=== PATIENT | male | born 1990 | race Caucasian/White ===

== ENCOUNTER 2020-07-10 12:30 | Emergency (ER) | payer OTHER, SELFPAY ==
--- NOTE | ~2020-07-10 | CT_ITS ---
EXAMINATION: CT HEAD WITHOUT CONTRAST CLINICAL INFORMATION: Altered mental syndrome. COMPARISON: None TECHNIQUE: Contiguous axial imaging was performed from the skull base to vertex without intravenous administration of contrast. This CT examination was performed using dose optimization techniques as appropriate, variously including the following: *Automated exposure control *Adjustment of mA and/or kV according to patient size (this includes techniques or standardized protocols for targeted exams where dose is matched to indication/reason for exam; i.e. extremities or head) *Use of iterative reconstruction technique DLP: 585 mGy-cm FINDINGS: There is no evidence of acute intracranial hemorrhage or territorial infarction. No abnormal mass effect or midline shift is seen. Beatty to white matter differentiation is well preserved. No extra-axial fluid collections are identified. The ventricles are normal in size. There is no abnormal attenuation within the brain parenchyma. The osseous structures and soft tissues are normal. The mastoid air cells and visualized portions of the paranasal sinuses are well aerated. CT/CT head/brain wo con IMPRESSION: No acute intracranial process seen.
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
[2020-07-10 14:05] VITALS: BP 138/83; PULSE 75; RESP 16; TEMP 36.8; O2SAT 97; BMI 22.2
[2020-07-10 14:09] LABS: Glucose, Whole Blood 428 mg/dL (60-115)
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
[2020-07-10 14:38] LABS: MANUAL DIFF FLAG NO
[2020-07-10 14:39] LABS: Basophils Percent Auto 0.5 % (0-2); Eosinophils Absolute Auto 0.2 X10*3/uL (0.0-0.4); Eosinophils Percent Auto 2.5 % (0-4); Hematocrit 49.4 % (42-52); Hemoglobin 17.1 g/dl (14.0-18.0); Imm Gran Abs Auto 0.01 X10*3/uL (0.00-0.03); Imm Gran Pct Auto 0.2 % (0.0-0.4); Lymphocytes Absolute Auto 1.6 X10*3/uL (1.2-4.9); Lymphocytes Percent Auto 25.5 % (20-40); Mean Corpuscular HGB Conc 34.6 g/dl (31.0-36.0); Mean Corpuscular Hemoglobin 31.7 pg (27.0-33.0); Mean Corpuscular Volume 91.5 fL (80-98); Mean Platelet Volume 10.4 fL (9.4-12.4); Monocytes Absolute Auto 0.4 X10*3/uL (0.1-1.2); Monocytes Percent Auto 5.4 % (2-11); Neutrophils Absolute Auto 4.2 X10*3/uL (2.0-8.3); Neutrophils Percent Auto 65.9 % (45-73); Platelet Count 267 X10*3/uL (160-400); Red Cell Distribution Width 11.5 % (11.0-16.0); White Blood Count 6.4 X10*3/uL (4.8-10.8)
[2020-07-10] MEDS: Insulin Regular, Human 100 UNIT/ML 3 ML VIAL IVPUSH (14:53)
[2020-07-10] MEDS: 0.9 % Sodium Chloride 1,000 ML 999 ML IV (14:54)
--- NOTE | 2020-07-10 15:11 | PC.NURSE ---
iv fluids infusing, at 1500 insulin given as ordered, pt continues with blunted affect, difficulty answering questions, appears to become confused/overwhelmed prior to answering, difficulty focusing
[2020-07-10 15:14] LABS: Ethanol < 10 mg/dL
[2020-07-10 15:45] LABS: Glucose, Whole Blood 258 mg/dL (60-115)
--- NOTE | 2020-07-10 15:54 | PC.NURSE ---
iv fluids infused w/o apparent incident 2 cups water given, still waiting for urine specimen and lab results. dr triplett aware poc 258, pt reports vision improved, head feels better
[2020-07-10 15:59] LABS: Anion Gap 10 (12-20); Blood Urea Nitrogen 12 mg/dL (9-16); Calcium 8.7 mg/dL (8.4-10.2); Carbon Dioxide 32 mmol/L (22-29); Chloride 99 mmol/L (96-108); Estimated Glomerular Filt Rate > 60; Glucose Random 399 mg/dL (60-115); Potassium 4.1 mmol/L (3.3-5.1); Sodium 137 mmol/L (135-145)
[2020-07-10 16:09] LABS: Glucose, Whole Blood 266 mg/dL (60-115)
--- NOTE | 2020-07-10 16:09 | PC.NURSE ---
REPEAT POC PER DR CLARKU 266
== END 2020-07-10 16:21 | disposition home or self-care (01) ==
PROVIDERS: Emergency Provider Emergency Medicine Emergency Medical Services
DX: S09.90XA Unspecified injury of head, initial encounter (principal); V43.52XA Car driver injured in collision with other type car in traffic accident, initial encounter; Y93.89 Activity, other specified; Y92.414 Local residential or business street as the place of occurrence of the external cause; Y99.9 Unspecified external cause status; E11.65 Type 2 diabetes mellitus with hyperglycemia; Z91.14 Patient's other noncompliance with medication regimen; M54.9 Dorsalgia, unspecified
CPT/HCPCS: 36415; 70450; 72100; 80048; 80320; 82947; 85025; 96361; 96374; 99283; 99284

== ENCOUNTER 2020-12-26 06:21 | Emergency (ER) | payer OTHER, SELFPAY ==
[2020-12-26 06:25] VITALS: BP 127/80; PULSE 57; RESP 16; TEMP 37.2; O2SAT 100; BMI 21.8
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
== END 2020-12-26 12:25 | disposition left against medical advice (07) ==
PROVIDERS: Emergency Provider Emergency Medicine
DX: F10.120 Alcohol abuse with intoxication, uncomplicated (principal); E11.9 Type 2 diabetes mellitus without complications; F12.90 Cannabis use, unspecified, uncomplicated; Z79.4 Long term (current) use of insulin
CPT/HCPCS: 99282

== ENCOUNTER 2021-02-09 11:05 | Emergency (ER) | payer OTHER, SELFPAY ==
[2021-02-09 12:06] VITALS: BP 125/83; PULSE 75; RESP 18; TEMP 36.6; O2SAT 98; BMI 22.3
[2021-02-09 13:01] LABS: MANUAL DIFF FLAG NO
[2021-02-09 13:02] LABS: Basophils Percent Auto 0.5 % (0-2); Eosinophils Absolute Auto 0.1 X10*3/uL (0.0-0.4); Eosinophils Percent Auto 1.9 % (0-4); Hematocrit 44.8 % (42-52); Hemoglobin 15.4 g/dl (14.0-18.0); Imm Gran Abs Auto 0.02 X10*3/uL (0.00-0.03); Imm Gran Pct Auto 0.3 % (0.0-0.4); Lymphocytes Absolute Auto 1.4 X10*3/uL (1.2-4.9); Lymphocytes Percent Auto 22.2 % (20-40); Mean Corpuscular HGB Conc 34.4 g/dl (31.0-36.0); Mean Corpuscular Volume 95.9 fL (80-98); Mean Platelet Volume 10.5 fL (9.4-12.4); Monocytes Absolute Auto 0.4 X10*3/uL (0.1-1.2); Monocytes Percent Auto 6.4 % (2-11); Neutrophils Absolute Auto 4.3 X10*3/uL (2.0-8.3); Neutrophils Percent Auto 68.7 % (45-73); Platelet Count 222 X10*3/uL (160-400); Red Blood Count 4.67 X10*6/uL (4.60-5.80); Red Cell Distribution Width 11.8 % (11.0-16.0); White Blood Count 6.3 X10*3/uL (4.8-10.8)
[2021-02-09 13:03] LABS: Appearance Urine HAZY; Color Urine STRAW; Glucose Urine UA >=1000 MG/DL (NEG); Leukocyte Esterase Urine NEG (NEG); Nitrite Urine NEG (NEG); Urine Blood NEG (NEG); Urine Ketones 15 MG/DL (NEG); Urine Protein NEG (NEG-TRACE)
[2021-02-09 13:13] LABS: RBC Urine 0-2 /HPF (0); WBC Urine 0-2 /HPF (0-4)
[2021-02-09 13:34] LABS: Alanine Aminotransferase 25 U/L (0-40); Albumin Level 4.2 g/dL (3.5-5.0); Alkaline Phosphatase 69 U/L (39-117); Anion Gap 15 (12-20); Aspartate Amino Transferase 26 U/L (5-37); Bilirubin Total 0.5 mg/dL (0.0-1.0); Blood Urea Nitrogen 10 mg/dL (9-16); Calcium 9.5 mg/dL (8.4-10.2); Carbon Dioxide 24 mmol/L (22-29); Chloride 99 mmol/L (96-108); Estimated Glomerular Filt Rate > 60; Glucose Random 660 mg/dL (60-115); Potassium 5.1 mmol/L (3.3-5.1); Sodium 133 mmol/L (135-145); Total Protein 6.5 g/dL (6.5-8.0)
[2021-02-09 13:43] LABS: Acetone, serum QL Negative (Negative)
[2021-02-09 13:48] LABS: Glucose, Whole Blood 534 mg/dL (60-115)
--- NOTE | 2021-02-09 16:17 | PC.NURSE ---
ATTEMPTED TO CALL PATIENT INTO ED. NO ANSWER IN WAITING ROOM
--- NOTE | 2021-02-09 17:11 | PC.NURSE ---
pt has bneeen called mult times. no response in wr.
== END 2021-02-09 17:37 | disposition left against medical advice (07) ==
PROVIDERS: Emergency Provider Emergency Medicine
DX: E11.65 Type 2 diabetes mellitus with hyperglycemia (principal); R53.1 Weakness; Z79.4 Long term (current) use of insulin
CPT/HCPCS: 36415; 80053; 81001; 81003; 82009; 82947; 85025; 96360; 96361; 99282; 99283; 99284

== ENCOUNTER 2021-07-16 03:09 | Emergency (ER) | payer OTHER, SELFPAY ==
[2021-07-16 03:14] VITALS: BP 139/88; BP 150/92; PULSE 66; RESP 16; TEMP 36.6; O2SAT 98; BMI 20.3
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
[2021-07-16] MEDS: Insulin Regular, Human 100 UNIT/ML 3 ML VIAL 10 UNIT IVPUSH (03:29)
[2021-07-16] MEDS: 0.9 % Sodium Chloride 1,000 ML 999 ML IV (03:31)
[2021-07-16 03:48] LABS: MANUAL DIFF FLAG NO
[2021-07-16 03:49] LABS: Basophils Percent Auto 0.2 % (0-2); Eosinophils Percent Auto 0.5 % (0-4); Hematocrit 40.5 % (42.0-52.0); Hemoglobin 13.9 g/dl (14.0-18.0); Imm Gran Abs Auto 0.01 X10*3/uL (0.00-0.03); Imm Gran Pct Auto 0.2 % (0.0-0.4); Lymphocytes Absolute Auto 2.2 X10*3/uL (1.2-4.9); Lymphocytes Percent Auto 33.7 % (20-40); Mean Corpuscular HGB Conc 34.3 g/dl (31.0-36.0); Mean Corpuscular Hemoglobin 31.8 pg (27.0-33.0); Mean Corpuscular Volume 92.7 fL (80.0-98.0); Mean Platelet Volume 9.9 fL (9.4-12.4); Monocytes Absolute Auto 0.1 X10*3/uL (0.1-1.2); Monocytes Percent Auto 1.7 % (2-11); Neutrophils Absolute Auto 4.1 x10*3/uL (2.0-8.3); Neutrophils Percent Auto 63.7 % (45-73); Platelet Count 181 X10*3/uL (160-400); Red Blood Count 4.37 X10*6/uL (4.60-5.80); Red Cell Distribution Width 11.6 % (11.0-16.0); White Blood Count 6.4 X10*3/uL (4.8-10.8)
[2021-07-16 03:50] LABS: Venous Blood Gas Refer to POC result
[2021-07-16 03:52] LABS: VBG Base Excess 0.7 mmol/L; VBG HCO3 25 mmol/L (22-26); VBG pCO2 41 mmHg; VBG pH 7.39 (7.32-7.43); VBG pO2 68 mmHg
[2021-07-16 04:09] VITALS: BP 124/65; PULSE 62; RESP 12; O2SAT 98
[2021-07-16 04:13] LABS: Alanine Aminotransferase 12 U/L (0-40); Albumin Level 3.9 g/dL (3.5-5.0); Alkaline Phosphatase 58 U/L (39-117); Anion Gap 13 (12-20); Aspartate Amino Transferase 14 U/L (5-37); Bilirubin Direct < 0.2 mg/dL (0.0-0.5); Bilirubin Total 0.3 mg/dL (0.0-1.0); Blood Urea Nitrogen 15 mg/dL (9-16); Calcium 8.1 mg/dL (8.4-10.2); Carbon Dioxide 27 mmol/L (22-29); Chloride 101 mmol/L (96-108); Creatinine Clr Calc Pharmacy 118.3; Estimated Glomerular Filt Rate > 60; Glucose Random 332 mg/dL (60-115); Potassium 3.1 mmol/L (3.3-5.1); Sodium 138 mmol/L (135-145); Total Protein 6.1 g/dL (6.5-8.0)
--- NOTE | 2021-07-16 04:56 | PC.NURSE ---
POC 82
[2021-07-16] MEDS: Potassium Chloride ER 20 MEQ TAB.ER.PRT 40 MEQ PO (05:17)
[2021-07-16] MEDS: Potassium Chloride/H20 10 MEQ/100 ML PIGGYBACK 100 MEQ IV (05:18)
[2021-07-16 11:48] LABS: Glucose, Whole Blood 82 mg/dL (60-115)
[2021-07-16 11:48] LABS: Glucose, Whole Blood 135 mg/dL (60-115)
== END 2021-07-16 06:59 ==
PROVIDERS: Emergency Provider Emergency Medicine
DX: E11.65 Type 2 diabetes mellitus with hyperglycemia (principal); E87.6 Hypokalemia; Z79.4 Long term (current) use of insulin
CPT/HCPCS: 36415; 80048; 80076; 82803; 82947; 85025; 96361; 96365; 96375; 99283; 99284

== ENCOUNTER 2023-05-01 23:22 | Emergency (ER) | payer MEDICAID, SELFPAY ==
[2023-05-01 23:51] VITALS: BP 111/83; PULSE 85; RESP 16; TEMP 36.7; O2SAT 98; BMI 20.9
[2023-05-02 00:08] LABS: Hematocrit 43.8 % (42.0-52.0); Hemoglobin 15.4 g/dl (14.0-18.0); Mean Corpuscular HGB Conc 35.2 g/dl (31.0-36.0); Mean Corpuscular Hemoglobin 32.2 pg (27.0-33.0); Mean Corpuscular Volume 91.4 fL (80.0-98.0); Mean Platelet Volume 10.1 fL (9.4-12.4); Platelet Count 285 X10*3/uL (160-400); Red Blood Count 4.79 X10*6/uL (4.60-5.80); Red Cell Distribution Width 11.5 % (11.0-16.0)
[2023-05-02 00:21] LABS: Beta-Hydroxybutyrate 0.32 mmol/L (0.02-0.27)
[2023-05-02 00:35] LABS: VBG Base Excess 7.5 mmol/L; VBG HCO3 33 mmol/L (22-26); VBG pCO2 49 mmHg; VBG pH 7.43 (7.32-7.43); VBG pO2 101 mmHg
[2023-05-02 00:36] LABS: Alanine Aminotransferase 35 U/L (0-40); Albumin Level 4.2 g/dL (3.5-5.0); Alkaline Phosphatase 98 U/L (39-117); Anion Gap 15 (12-20); Aspartate Amino Transferase 21 U/L (5-37); Bilirubin Total 0.5 mg/dL (0.0-1.0); Blood Urea Nitrogen 24 mg/dL (9-16); Calcium 9.7 mg/dL (8.4-10.2); Carbon Dioxide 29 mmol/L (22-29); Chloride 91 mmol/L (96-108); Creatinine Clr Calc Pharmacy 82.2; Estimated Glomerular Filt Rate > 60; Glucose Random 766 mg/dL (60-115); Lipase 39 U/L (8-78); Potassium 4.5 mmol/L (3.3-5.1); Sodium 130 mmol/L (135-145); Total Protein 7.1 g/dL (6.5-8.0); Venous Blood Gas Refer to POC result
--- NOTE | 2023-05-02 00:38 | ED_ITS ---
HPI - General Adult General Chief complaint: General Medical Stated complaint: high sugars, toothache Time Seen by Provider: 05/02/23 00:15 Source: patient Mode of arrival: ambulatory Limitations: no limitations History of Present Illness HPI narrative: In type 1 diabetes on insulin missed his. Insulin for last 3 days as he could not get it by the insurance. feeling thirsty urinating a lot feeling sleepy and tired no vomiting no fever does have toothache for last 1 week with no pus discharge or gum swelling Related Data Previous Rx's Medication Instructions Recorded amoxicillin 875 mg-potassium 1 tab PO BID #20 tabs 05/02/23 clavulanate 125 mg tablet ibuprofen 600 mg tablet 600 mg PO Q6H PRN fever or pain 05/02/23 #30 tabs insulin glargine 100 unit/mL (3 30 unit (0.3 mL) subcut QPM #15 mL 05/02/23 mL) subcutaneous pen (Lantus Solostar U-100 Insulin) insulin lispro 100 unit/mL 1 sliding scale dose subcut 05/02/23 subcutaneous pen (Humalog KwikPen USEASDIRECTD #15 mL (U-100) Insulin) Allergies Allergy/AdvReac Type Severity Reaction Status Date / Time No Known Allergies Allergy Unverified 02/20/20 16:58 N.K.D.A. Allergy Unknown Uncoded 10/02/18 00:00 Review of Systems 2 Review of Systems: Yes all other systems are reviewed and are negative [facility] Past Medical History Medical History IDDM (insulin dependent diabetes mellitus) Social History Patient Tobacco Use Status: Tobacco use Unknown Substance Use Type: Heroin and Marijuana Advance Directives: No Advance Directives Information Provided: Yes Physical Exam ED Vital Signs: Vital Signs - 24 hr 05/01/23 23:51 05/02/23 03:08 Temperature 98.0 F 98.4 F Pulse Rate 85 77 Respiratory Rate 16 16 Blood Pressure 111/83 121/74 Pulse Oximetry 98 96 Oxygen Delivery Method Room Air Room Air BMI result Body Mass Index 20.9 Appearance: Alert. Oriented X3. No acute distress. Eyes: PERRLA, No Nystagmus ENT: Pharynx normal. Oral Mucosa moist no deep cavity noticed Neck: Normal inspection. Neck supple. CVS: Normal heart rate and rhythm. Pulses normal. Respiratory: No respiratory distress. Equal air entry bilateral, no wheezing/rales/rhonchi Abdomen: Soft and nontender. Bowel sounds are present, no mass palpable, no CVA tenderness Skin: Skin warm and dry. Normal skin color. Normal skin turgor. Extremities: No lower extremity edema. No calf tenderness Neuro: Oriented X 3. No motor deficit. Medications Administered Discontinued Medications Generic Name Dose Route Start Last Admin Trade Name Freq PRN Reason Stop Dose Admin Amoxicillin/Clavulanate Potassium 875 mg 05/02/23 06:19 05/02/23 06:27 Amoxicillin/Potassium Clav 875 Mg Tablet PO 05/02/23 06:20 875 mg ONCE ONE Administration Sodium Chloride 1,000 mls @ 999 mls/hr 05/02/23 00:39 05/02/23 01:38 Ns IV 05/02/23 01:39 Infused .Q1H1M ONE Infusion Sodium Chloride 1,000 mls @ 999 mls/hr 05/02/23 00:40 05/02/23 02:40 Ns IV 05/02/23 01:40 Infused .Q1H1M ONE Infusion Insulin Glargine 30 unit 05/02/23 00:44 05/02/23 01:50 Insulin Glargine,Hum.Rec.Anlog 100 Unit/Ml 10 Ml Vial SUBCUT 05/02/23 00:45 30 unit ONCE ONE Administration Insulin Human Lispro 14 unit 05/02/23 01:59 05/02/23 02:11 Insulin Lispro 100 Unit/Ml 3 Ml Vial SUBCUT 05/02/23 02:00 14 unit ONCE ONE Administration Insulin Human Regular 14 unit 05/02/23 00:39 05/02/23 00:47 Insulin Regular, Human 100 Unit/Ml 3 Ml Vial IVPUSH 05/02/23 00:40 14 unit ONCE ONE Administration Morphine Sulfate 4 mg 05/02/23 01:40 05/02/23 01:51 Morphine Sulfate 4 Mg/Ml Cartridge IVPUSH 05/02/23 01:41 4 mg ONCE ONE Administration Protocol Medical Decision Making Medical Decision Making MDM Narrative: Been noncompliant with insulin does not have insurance in with hyperglycemia nonketotic non acidotic improved after IV hydration and insulin patient will be given prescription for Lantus and regular Humalog advised to follow-up with PCP also give a prescription for Augmentin for possible deep tooth infection Differential Diagnosis Differential Diagnoses: The differential diagnosis associated with the presentation includes Diabetic ketoacidosis/hyperglycemia/dental caries Admission/Observation Consideration of admission/observation: Escalation of care including admission/observation considered Lab Data MDM Lab Attestation statement: I reviewed the patient's lab results. 05/02/23 00:02 05/02/23 00:02 Labs: Lab Results 05/02/23 05/02/23 05/02/23 Range/Units 00:02 00:06 01:47 WBC 8.0 (4.8-10.8) X10*3/uL RBC 4.79 (4.60-5.80) X10*6/uL Hgb 15.4 (14.0-18.0) g/dl Hct 43.8 (42.0-52.0) % MCV 91.4 (80.0-98.0) fL MCH 32.2 (27.0-33.0) pg MCHC 35.2 (31.0-36.0) g/dl RDW 11.5 (11.0-16.0) % Plt Count 285 D (160-400) X10*3/uL MPV 10.1 (9.4-12.4) fL Absolute Nucleated RBC 0.000 (0.0-0.012) X10*3/uL Nucleated RBC % (auto) 0.0 (0.0-0.2) /100WBC VBG pH 7.43 (7.32-7.43) VBG pCO2 49 mmHg VBG pO2 101 mmHg VBG HCO3 33 H (22-26) mmol/L VBG O2 Saturation 99.0 % VBG Base Excess 7.5 mmol/L Sodium 130 L (135-145) mmol/L Potassium 4.5 D (3.3-5.1) mmol/L Chloride 91 L (96-108) mmol/L Carbon Dioxide 29 (22-29) mmol/L Anion Gap 15 (12-20) BUN 24 H (9-16) mg/dL Creatinine 1.23 (0.5-1.4) mg/dL Estim Creat Clear Calc 82.2 Estimated GFR > 60 POC Glucose 427 H* (60-115) mg/dL Random Glucose 766 H* (60-115) mg/dL Calcium 9.7 D (8.4-10.2) mg/dL Total Bilirubin 0.5 (0.0-1.0) mg/dL AST 21 (5-37) U/L ALT 35 (0-40) U/L Alkaline Phosphatase 98 (39-117) U/L Total Protein 7.1 (6.5-8.0) g/dL Albumin 4.2 (3.5-5.0) g/dL Lipase 39 (8-78) U/L Beta-Hydroxybutyrate 0.32 H (0.02-0.27) mmol/L Urine Color Urine Appearance Urine pH (5.0-9.0) Ur Specific [place] (1.005-1.025) Urine Protein (Neg-Trace) mg/dL Urine Glucose (UA) (Negative) mg/dL Urine Ketones (Negative) mg/dL Urine Blood (Negative) Urine Nitrite (Negative) Ur Leukocyte Esterase (Negative) Urine RBC (0-2) /HPF Urine WBC (0-5) /HPF Ur Squamous Epith Cells (0-2) /HPF Urine Bacteria (None Seen) Hyaline Casts (0-2) /LPF 05/02/23 05/02/23 Range/Units 03:47 03:50 WBC (4.8-10.8) X10*3/uL RBC (4.60-5.80) X10*6/uL Hgb (14.0-18.0) g/dl Hct (42.0-52.0) % MCV (80.0-98.0) fL MCH (27.0-33.0) pg MCHC (31.0-36.0) g/dl RDW (11.0-16.0) % Plt Count (160-400) X10*3/uL MPV (9.4-12.4) fL Absolute Nucleated RBC (0.0-0.012) X10*3/uL Nucleated RBC % (auto) (0.0-0.2) /100WBC VBG pH (7.32-7.43) VBG pCO2 mmHg VBG pO2 mmHg VBG HCO3 (22-26) mmol/L VBG O2 Saturation % VBG Base Excess mmol/L Sodium (135-145) mmol/L Potassium (3.3-5.1) mmol/L Chloride (96-108) mmol/L Carbon Dioxide (22-29) mmol/L Anion Gap (12-20) BUN (9-16) mg/dL Creatinine (0.5-1.4) mg/dL Estim Creat Clear Calc Estimated GFR POC Glucose 185 H (60-115) mg/dL Random Glucose (60-115) mg/dL Calcium (8.4-10.2) mg/dL Total Bilirubin (0.0-1.0) mg/dL AST (5-37) U/L ALT (0-40) U/L Alkaline Phosphatase (39-117) U/L Total Protein (6.5-8.0) g/dL Albumin (3.5-5.0) g/dL Lipase (8-78) U/L Beta-Hydroxybutyrate (0.02-0.27) mmol/L Urine Color Yellow Urine Appearance Clear Urine pH 5.5 (5.0-9.0) Ur Specific [place] >= 1.030 H (1.005-1.025) Urine Protein Negative (Neg-Trace) mg/dL Urine Glucose (UA) >=1000 H (Negative) mg/dL Urine Ketones Negative (Negative) mg/dL Urine Blood Negative (Negative) Urine Nitrite Negative (Negative) Ur Leukocyte Esterase Negative (Negative) Urine RBC 0-2 (0-2) /HPF Urine WBC 0-5 (0-5) /HPF Ur Squamous Epith Cells 0-2 (0-2) /HPF Urine Bacteria None Seen (None Seen) Hyaline Casts 0-2 (0-2) /LPF Critical Care Time Critical Care Time Critical Care Time: Yes Total Critical Care Time: 45 Attestation: The patient was critically ill with a high probability of imminent or life threatening deterioration. I spent greater than 50 minutes of discontinuous time evaluating the patient,delivering critical care at the bedside, discussing and evaluating pertinent data with consultants. Critical care time does not include time spent performing separately billable procedures or teaching. Total time spent performing critical care was 45 minutes. Discharge Plan Discharge Clinical Impression: Diabetes mellitus with hyperglycemia, Toothache Patient Disposition: Home, Self-Care Instructions: Toothache (ED), Diabetic Hyperglycemia (ED) Prescriptions: New amoxicillin-pot clavulanate 875-125 mg tablet 1 tab PO BID Qty: 20 0RF insulin glargine [Lantus Solostar U-100 Insulin] 100 unit/mL (3 mL) insulin pen 30 unit subcut QPM Qty: 15 3RF insulin lispro [Humalog KwikPen Insulin] 100 unit/mL insulin pen 1 sliding scale dose subcut USEASDIRECTD Qty: 15 2RF ibuprofen 600 mg tablet 600 mg PO Q6H PRN (Reason: fever or pain) Qty: 30 0RF
[2023-05-02] MEDS: Insulin Regular, Human 100 UNIT/ML 3 ML VIAL 14 UNIT IVPUSH (00:47)
[2023-05-02] MEDS: 0.9 % Sodium Chloride 1,000 ML 999 ML IV ×2 (00:50→01:39)
[2023-05-02] MEDS: Insulin Glargine,Hum.rec.anlog 100 UNIT/ML 10 ML VIAL 30 UNIT SUBCUT (01:50)
[2023-05-02 01:51] LABS: Glucose, Whole Blood 427 mg/dL (60-115)
[2023-05-02] MEDS: Morphine Sulfate 4 MG/ML CARTRIDGE IVPUSH (01:51)
[2023-05-02] MEDS: Insulin Lispro 100 UNIT/ML 3 ML VIAL 14 UNIT SUBCUT (02:11)
[2023-05-02 03:08] VITALS: BP 121/74; PULSE 77; RESP 16; TEMP 36.9; O2SAT 96
[2023-05-02 03:56] LABS: Glucose, Whole Blood 185 mg/dL (60-115)
[2023-05-02 03:58] LABS: Appearance Urine Clear; Color Urine Yellow; Glucose Urine UA >=1000 mg/dL (Negative); Leukocyte Esterase Urine Negative (Negative); Nitrite Urine Negative (Negative); PH 5.5 (5.0-9.0); Specific Gravity - Urine >= 1.030 (1.005-1.025); UMIC TRIGGER UACC YES; Urine Blood Negative (Negative); Urine Ketones Negative (Negative); Urine Protein Negative (Neg-Trace)
[2023-05-02 04:01] LABS: Bacteria Urine None Seen (None Seen); Hyaline Casts Urine 0-2 /LPF (0-2); RBC Urine 0-2 /HPF (0-2); Squamous Epithelial Cell Urine 0-2 /HPF (0-2); WBC Urine 0-5 /HPF (0-5)
[2023-05-02] MEDS: Amoxicillin/Potassium Clav 875 MG TABLET PO (06:27)
[2023-05-02 06:49] LABS: Glucose, Whole Blood > 600 mg/dL (60-115)
[2023-05-02 06:50] LABS: Glucose, Whole Blood > 600 mg/dL (60-115)
== END 2023-05-02 06:50 | disposition home or self-care (01) ==
PROVIDERS: Emergency Provider Internal Medicine
DX: E10.65 Type 1 diabetes mellitus with hyperglycemia (principal); K08.89 Other specified disorders of teeth and supporting structures; Z79.4 Long term (current) use of insulin
CPT/HCPCS: 36415; 80053; 81001; 82010; 82803; 82947; 83690; 85027; 96361; 96374; 96375; 99284; J2270

== ENCOUNTER 2023-05-09 08:28 | Inpatient (IN) | payer MEDICAID, SELFPAY ==
[2023-05-09] VITALS (16 sets, daily range): BP systolic 125–149; BP diastolic 51–96; PULSE 77–101; RESP 12–20; TEMP 36.5–36.9; O2SAT 99–100; BMI 18.4; BMI 18.5
--- NOTE | 2023-05-09 08:49 | ED_ITS ---
HPI - General Adult General Chief complaint: General Medical Stated complaint: Diabetic no insulin 2 wks/Vomiting Time Seen by Provider: 05/09/23 08:49 Source: patient, RN notes reviewed and old records reviewed Mode of arrival: ambulatory History of Present Illness HPI narrative: 32-year-old male with past medical history of diabetes noncompliant on Lantus x 2 weeks due to insurance issues presenting to the ED complaining of hyperglycemia, abdominal pain/cramping, nausea, vomiting, polyuria and polydipsia. Patient was recently seen and treated in our ED on 05/02 for similar symptoms. [facility] use to have [employer] however lost his job and now is on [employer] in unable to get insulin. States glucometer reading HIGH. Denies fever chills, cough, dysuria/hematuria Onset (ago): week(s) Related Data Home Medications Medication Instructions Recorded Confirmed insulin glargine 100 unit/mL (3 30 unit subcut BEDTIME 05/09/23 05/09/23 mL) subcutaneous pen (Lantus Solostar U-100 Insulin) Previous Rx's Medication Instructions Recorded amoxicillin 875 mg-potassium 1 tab PO BID #20 tabs 05/02/23 clavulanate 125 mg tablet ibuprofen 600 mg tablet 600 mg PO Q6H PRN fever or pain 05/02/23 #30 tabs insulin lispro 100 unit/mL 1 sliding scale dose subcut 05/02/23 subcutaneous pen (Humalog KwikPen USEASDIRECTD #15 mL (U-100) Insulin) Allergies Allergy/AdvReac Type Severity Reaction Status Date / Time No Known Allergies Allergy Unverified 02/20/20 16:58 N.K.D.A. Allergy Unknown Uncoded 10/02/18 00:00 Review of Systems 2 Review of Systems: Constitutional: No Fever, No Chills ENT/Mouth: No Ear Pain, No Nasal Congestion, No Sinus Pain, No Hoarseness, No sore throat, No Rhinorrhea, No Swallowing Difficulty Cardiovascular: No Chest Pain, No SOB Respiratory: No Cough, No Sputum, No Wheezing Gastrointestinal: + Nausea, + Vomiting, No Diarrhea, No Constipation, + Abdominal pain Genitourinary: No Dysuria, No Urinary Frequency, No Hematuria, No Urinary Incontinence/retention, No Urgency, No Flank Pain Musculoskeletal: No joint pain, No Myalgias, No Joint Swelling Skin: No Skin Lesions, No rash Neuro: No Weakness, No Numbness, No Paresthesias Endocrine: + Polyuria, + Polydipsia, No Temperature Intolerance Yes all other systems are reviewed and are negative Constitutional: Constitutional: Reports as per [facility] Past Medical History Attestation statement: The following information was validated with the patient. Source: old records reviewed Medical History IDDM (insulin dependent diabetes mellitus) Social History Social History Household Members: Significant Other Household Members Other:: girlfriend Housing: Apartment Do you presently have visiting nurse or other home services: No Patient Tobacco Use Status: Never used Tobacco Use of substances other than those prescribed or required for medical reasons: No Substance Use Type: Heroin and Marijuana Have you been hit, kicked, punched, or otherwise hurt by someone within the past year? If so, by whom?: No Do you feel safe in your current relationship?: Yes Is there a partner from a previous relationship who is making you feel unsafe now?: No Are you made to feel afraid or neglected: No Spiritual Healthcare Practices: n/a Orthodoxy Healthcare Practices: n/a Cultural Healthcare Practices: n/a Advance Directives: No Advance Directives Information Provided: No Do you have thoughts of harming others: None Do you have a plan to hurt others: No Plan Recently lost weight without trying: Unsure Nutrition Risks: Diabetes new onset/Uncontrolled Poor oral hygiene: No Physical Exam ED Vital Signs: Vital Signs - 24 hr 05/09/23 08:50 05/09/23 10:07 Temperature 97.7 F Pulse Rate 95 97 Respiratory Rate 17 20 Blood Pressure 125/51 L 146/67 H Pulse Oximetry 100 100 Oxygen Delivery Method Room Air Room Air BMI result Body Mass Index 18.4 Const General: cooperative and no acute distress Orientation/consciousness: patient oriented x3 Limitations: no limitations HENMT Head: Yes normal to inspection and Yes atraumatic Ears: hearing grossly normal bilaterally General nose exam: Normal external nose present Face and sinus: Yes normal facial exam Eyes General: appearance normal, both eyes and all related structures EOM: EOMs intact bilaterally Neck Neck: Yes normal visual inspection and Yes no meningeal signs Resp Effort & Inspection: normal respiratory effort and no respiratory distress Auscultation: clear to auscultation bilaterally Cardio Rate: regular rate Heart sounds: S1 normal heart sound present and S2 normal heart sound present GI Inspection: Yes normal to inspection Palpation (GI): Soft to palpation, Tenderness to palpation present (GI) (Diffusely, nonfocal) with no rebound tenderness, no guarding and not rigid General: Yes no CVA tenderness Back/Spine/Pelvis Back: no CVA tenderness Skin Rashes: no rashes Wounds: no wounds Neuro General: patient oriented x3, tone normal, moves all extremities, no meningeal signs and no focal motor deficits Cranial nerves: Yes CN's II-XII intact bilaterally Gait exam (Neuro): Normal gait present Extrem General: Yes normal to inspection Course Course Course Narrative: -0945--leukocytosis of 16.2 > likely reactive from nausea/vomiting -pH 7.04. CO2 26. Bicarb 7 -glucose > 600 -0955--lactic acidosis of 5.0 > from DKA. Potassium+ 5.3 >> Insulin drip ordered -pseudo hyponatremia. + MIKE BUN 23, creatinine of 2.18. Beta hydroxybutyrate 12.9. Low suspicion for severe sepsis. Lab abnormalities from DKA. No evidence of infection -0957--patient with notable short run of V-tach on patient monitor. ED Attending Dr. Ya aware > calcium gluconate ordered & bicarb push. Will consult [employer] Person Dr. Peralta >> patient accepted to the ICU Medications Administered Generic Name Dose Route Start Last Admin Trade Name Freq PRN Reason Stop Dose Admin Heparin Sodium (Porcine) 5,000 unit 05/09/23 11:00 05/09/23 13:13 Heparin Sodium,Porcine 5,000 Unit/Ml Vial SUBCUT 5,000 unit Q8H LAUREL Administration Insulin Human Regular 100 unit in 100 mls @ 5.9 mls/hr 05/09/23 10:00 05/09/23 15:14 Myxredlin IVCONT 2.5 unit/hr .[id number] LAUREL 2.5 mls/hr Titration Protocol 5.9 UNIT/HR Lactated Ringer's 1,000 mls @ 200 mls/hr 05/09/23 10:30 05/09/23 15:19 Lr IVCONT 200 mls/hr .Q5H LAUREL Administration Discontinued Medications Generic Name Dose Route Start Last Admin Trade Name Fredyq PRN Reason Stop Dose Admin Lactated Ringer's 1,000 mls @ 999 mls/hr 05/09/23 09:15 05/09/23 10:39 Lr IV 05/09/23 10:15 Infused .Q1H1M LAUREL Infusion Lactated Ringer's 1,000 mls @ 999 mls/hr 05/09/23 09:15 05/09/23 10:24 Lr IV 05/09/23 10:15 Infused .Q1H1M LAUREL Infusion Calcium Gluconate 1 gm in 50 mls @ 50 mls/hr 05/09/23 09:56 05/09/23 11:06 Calcium Gluconate IV 05/09/23 10:55 Infused ONCE ONE Infusion Insulin Human Regular 10 unit 05/09/23 10:04 05/09/23 10:21 Insulin Regular, Human 100 Unit/Ml 3 Ml Vial IVPUSH 05/09/23 10:05 10 unit ONCE ONE Administration Ondansetron HCl 4 mg 05/09/23 09:18 05/09/23 09:28 Ondansetron Hcl 4 Mg/2 Ml Vial IVPUSH 05/09/23 09:19 4 mg ONCE ONE Administration Sodium Bicarbonate 50 meq 05/09/23 10:16 05/09/23 10:22 Sodium Bicarbonate 8.4% 50 Meq/50 Ml Syringe IVPUSH 05/09/23 10:17 50 meq ONCE ONE Administration Medical Decision Making Medical Decision Making MDM Narrative: 32-year-old male with past medical history of diabetes noncompliant on Lantus x 2 weeks due to insurance issues presenting to the ED complaining of hyperglycemia, abdominal pain/cramping, nausea, vomiting, polyuria and polydipsia. On exam vital signs stable, appears uncomfortable, abdomen soft diffusely tender, nonfocally. Concern for DKA/hyperglycemia vs metabolic/infectious etiologies. Lower suspicion for appendicitis/diverticulitis at this time. Low suspicion for severe sepsis. Plan: EKG, labs, UA, tox screen, LR, revaluate, anticipate admission Please refer to course for remaining clinical decision making, interpretation of labs/imaging results, and discussions with consultants and/or family members. Differential Diagnosis Differential Diagnoses: The differential diagnosis associated with the presentation includes As above Admission/Observation Consideration of admission/observation: Escalation of care including admission/observation considered Consult Healthcare Provider Management of the patient was discussed with: Hospitalist ([employer]) Lab Data MDM Lab Attestation statement: I reviewed the patient's lab results. 05/09/23 09:07 05/09/23 13:51 Labs: Lab Results 05/09/23 05/09/23 05/09/23 Range/Units 08:42 08:57 09:05 WBC (4.8-10.8) X10*3/uL RBC (4.60-5.80) X10*6/uL Hgb (14.0-18.0) g/dl Hct (42.0-52.0) % MCV (80.0-98.0) fL MCH (27.0-33.0) pg MCHC (31.0-36.0) g/dl RDW (11.0-16.0) % Plt Count (160-400) X10*3/uL MPV (9.4-12.4) fL Immature Gran % (Auto) (0.0-0.4) % Neut % (Auto) (45-73) % Lymph % (Auto) (20-40) % [place] % (Auto) (2-11) % Eos % (Auto) (0-4) % Baso % (Auto) (0-2) % Lymph # (Auto) (1.2-4.9) X10*3/uL [place] # (Auto) (0.1-1.2) X10*3/uL Eos # (Auto) (0.0-0.4) X10*3/uL Baso # (Auto) (0.0-0.2) X10*3/uL Abs Immat Gran (auto) (0.00-0.03) X10*3/uL Absolute Neuts (auto) (2.0-8.3) x10*3/uL Absolute Nucleated RBC (0.0-0.012) X10*3/uL Nucleated RBC % (auto) (0.0-0.2) /100WBC VBG pH (7.32-7.43) VBG pCO2 mmHg VBG pO2 mmHg VBG HCO3 (22-26) mmol/L VBG O2 Saturation % VBG Base Excess mmol/L Sodium (135-145) mmol/L Potassium (3.3-5.1) mmol/L Chloride (96-108) mmol/L Carbon Dioxide (22-29) mmol/L Anion Gap (12-20) BUN (9-16) mg/dL Creatinine (0.5-1.4) mg/dL Estim Creat Clear Calc Estimated GFR POC Glucose > 600 H* > 600 H* (60-115) mg/dL Random Glucose (60-115) mg/dL Lactic Acid (0.5-2.0) mmol/L Calcium (8.4-10.2) mg/dL Magnesium (1.6-2.6) mg/dL Total Bilirubin (0.0-1.0) mg/dL Direct Bilirubin (0.0-0.5) mg/dL AST (5-37) U/L ALT (0-40) U/L Alkaline Phosphatase (39-117) U/L Troponin I High Sens (<3.5-35.0) ng/L Total Protein (6.5-8.0) g/dL Albumin (3.5-5.0) g/dL Lipase (8-78) U/L Beta-Hydroxybutyrate (0.02-0.27) mmol/L COVID-19 (LYNN) Negative (Negative) COVID-19 Clin Com See Note 05/09/23 05/09/23 05/09/23 Range/Units 09:06 09:07 09:10 WBC 16.2 H (4.8-10.8) X10*3/uL RBC 5.35 (4.60-5.80) X10*6/uL Hgb 16.9 (14.0-18.0) g/dl Hct 51.8 (42.0-52.0) % MCV 96.8 (80.0-98.0) fL MCH 31.6 (27.0-33.0) pg MCHC 32.6 (31.0-36.0) g/dl RDW 11.3 (11.0-16.0) % Plt Count 369 D (160-400) X10*3/uL MPV 10.3 (9.4-12.4) fL Immature Gran % (Auto) 0.7 H (0.0-0.4) % Neut % (Auto) 81.2 H (45-73) % Lymph % (Auto) 15.4 L (20-40) % [place] % (Auto) 2.2 (2-11) % Eos % (Auto) 0.1 (0-4) % Baso % (Auto) 0.4 (0-2) % Lymph # (Auto) 2.5 (1.2-4.9) X10*3/uL [place] # (Auto) 0.4 (0.1-1.2) X10*3/uL Eos # (Auto) 0.0 (0.0-0.4) X10*3/uL Baso # (Auto) 0.1 (0.0-0.2) X10*3/uL Abs Immat Gran (auto) 0.12 H (0.00-0.03) X10*3/uL Absolute Neuts (auto) 13.2 H (2.0-8.3) x10*3/uL Absolute Nucleated RBC 0.000 (0.0-0.012) X10*3/uL Nucleated RBC % (auto) 0.0 (0.0-0.2) /100WBC VBG pH 7.04 L* (7.32-7.43) VBG pCO2 26 mmHg VBG pO2 51 mmHg VBG HCO3 7 L (22-26) mmol/L VBG O2 Saturation 70.0 % VBG Base Excess -21.8 mmol/L Sodium 129 L (135-145) mmol/L Potassium 5.3 H (3.3-5.1) mmol/L Chloride 87 L (96-108) mmol/L Carbon Dioxide 7 L* D (22-29) mmol/L Anion Gap 40 H (12-20) BUN 23 H (9-16) mg/dL Creatinine 2.18 H (0.5-1.4) mg/dL Estim Creat Clear Calc 40.6 Estimated GFR 35 POC Glucose (60-115) mg/dL Random Glucose 762 H* (60-115) mg/dL Lactic Acid 5.0 H* (0.5-2.0) mmol/L Calcium 10.0 (8.4-10.2) mg/dL Magnesium 2.4 (1.6-2.6) mg/dL Total Bilirubin 0.6 (0.0-1.0) mg/dL Direct Bilirubin 0.1 (0.0-0.5) mg/dL AST 14 (5-37) U/L ALT 28 (0-40) U/L Alkaline Phosphatase 112 (39-117) U/L Troponin I High Sens < 2.7 (<3.5-35.0) ng/L Total Protein 8.4 H (6.5-8.0) g/dL Albumin 4.9 (3.5-5.0) g/dL Lipase 11 (8-78) U/L Beta-Hydroxybutyrate 12.90 H (0.02-0.27) mmol/L COVID-19 (LYNN) (Negative) COVID-19 Clin Com 05/09/23 Range/Units 09:52 WBC (4.8-10.8) X10*3/uL RBC (4.60-5.80) X10*6/uL Hgb (14.0-18.0) g/dl Hct (42.0-52.0) % MCV (80.0-98.0) fL MCH (27.0-33.0) pg MCHC (31.0-36.0) g/dl RDW (11.0-16.0) % Plt Count (160-400) X10*3/uL MPV (9.4-12.4) fL Immature Gran % (Auto) (0.0-0.4) % Neut % (Auto) (45-73) % Lymph % (Auto) (20-40) % [place] % (Auto) (2-11) % Eos % (Auto) (0-4) % Baso % (Auto) (0-2) % Lymph # (Auto) (1.2-4.9) X10*3/uL [place] # (Auto) (0.1-1.2) X10*3/uL Eos # (Auto) (0.0-0.4) X10*3/uL Baso # (Auto) (0.0-0.2) X10*3/uL Abs Immat Gran (auto) (0.00-0.03) X10*3/uL Absolute Neuts (auto) (2.0-8.3) x10*3/uL Absolute Nucleated RBC (0.0-0.012) X10*3/uL Nucleated RBC % (auto) (0.0-0.2) /100WBC VBG pH (7.32-7.43) VBG pCO2 mmHg VBG pO2 mmHg VBG HCO3 (22-26) mmol/L VBG O2 Saturation % VBG Base Excess mmol/L Sodium (135-145) mmol/L Potassium (3.3-5.1) mmol/L Chloride (96-108) mmol/L Carbon Dioxide (22-29) mmol/L Anion Gap (12-20) BUN (9-16) mg/dL Creatinine (0.5-1.4) mg/dL Estim Creat Clear Calc Estimated GFR POC Glucose > 600 H* (60-115) mg/dL Random Glucose (60-115) mg/dL Lactic Acid (0.5-2.0) mmol/L Calcium (8.4-10.2) mg/dL Magnesium (1.6-2.6) mg/dL Total Bilirubin (0.0-1.0) mg/dL Direct Bilirubin (0.0-0.5) mg/dL AST (5-37) U/L ALT (0-40) U/L Alkaline Phosphatase (39-117) U/L Troponin I High Sens (<3.5-35.0) ng/L Total Protein (6.5-8.0) g/dL Albumin (3.5-5.0) g/dL Lipase (8-78) U/L Beta-Hydroxybutyrate (0.02-0.27) mmol/L COVID-19 (LYNN) (Negative) COVID-19 Clin Com Independent Interpretation I performed an independent interpretation of an: EKG (My interpretation EKG normal sinus rhythm with P these rate of 95. Pr interval 142. Aberrant conduction now present. Nonspecific T-wave abnormality improved in anterior lateral leads. No STEMI ) Radiology Impression Discussion of test interpretation with radiology: I have reviewed the radiologist's reading. External Record Review External record reviewed: Inpatient record, Office record, Outpatient record, Prior outpatient labs, Prior outpatient radiology, Primary care record and Outside ED record Tests considered The following testing was considered but not selected: As above Chronic Conditions Patient?s care impacted by: Diabetes Social Determinants Patient?s care significantly limited by Social Determinants of Health including: Low income and Other Social Determinant of Health Critical Care Time Critical Care Time Critical Care Time: Yes Total Critical Care Time: 60 Attestation: I have personally provided critical care time exclusive of time spent on separately billable procedures. Time includes review of lab data, radiology results, discussion with consultants, and monitoring for potential decompensation. Intervention performed as documented. Discharge Plan Discharge Clinical Impression: DKA (diabetic ketoacidosis) Patient Disposition: Admitted As Inpatient Interventions: Admission Worksheet (ED) Last Done: 05/09/23 11:50 Discharge Date/Time: 05/09/23 11:50
--- NOTE | 2023-05-09 09:02 | ECG_ITS ---
Test Reason : HYPERGLYCEMIA Blood Pressure : / mmHG Vent. Rate : 095 BPM Atrial Rate : 095 BPM P-R Int : 142 ms QRS Dur : 106 ms QT Int : 374 ms P-R-T Axes : 087 145 040 degrees QTc Int : 469 ms Sinus rhythm with Premature atrial complexes with Aberrant conduction Possible Left atrial enlargement Right axis deviation Abnormal ECG When compared with ECG of 20-JAN-2017 05:54, Vent. rate has increased BY 39 BPM Nonspecific T wave abnormality, improved in Anterolateral leads Referred By: Oneida You Electronically Signed By:ERIC ARVIZU
[2023-05-09] MEDS: Lactated Ringers 1,000 ML 999 ML IV ×2 (09:06→10:23)
[2023-05-09 09:11] LABS: Glucose, Whole Blood > 600 mg/dL (60-115)
[2023-05-09 09:12] LABS: MANUAL DIFF FLAG NO
[2023-05-09 09:14] LABS: Basophils Absolute Auto 0.1 X10*3/uL (0.0-0.2); Basophils Percent Auto 0.4 % (0-2); Eosinophils Percent Auto 0.1 % (0-4); Hematocrit 51.8 % (42.0-52.0); Hemoglobin 16.9 g/dl (14.0-18.0); Imm Gran Abs Auto 0.12 X10*3/uL (0.00-0.03); Imm Gran Pct Auto 0.7 % (0.0-0.4); Lymphocytes Absolute Auto 2.5 X10*3/uL (1.2-4.9); Lymphocytes Percent Auto 15.4 % (20-40); Mean Corpuscular HGB Conc 32.6 g/dl (31.0-36.0); Mean Corpuscular Hemoglobin 31.6 pg (27.0-33.0); Mean Corpuscular Volume 96.8 fL (80.0-98.0); Mean Platelet Volume 10.3 fL (9.4-12.4); Monocytes Absolute Auto 0.4 X10*3/uL (0.1-1.2); Monocytes Percent Auto 2.2 % (2-11); Neutrophils Absolute Auto 13.2 x10*3/uL (2.0-8.3); Neutrophils Percent Auto 81.2 % (45-73); Platelet Count 369 X10*3/uL (160-400); Red Blood Count 5.35 X10*6/uL (4.60-5.80); Red Cell Distribution Width 11.3 % (11.0-16.0); White Blood Count 16.2 X10*3/uL (4.8-10.8)
[2023-05-09 09:19] LABS: Venous Blood Gas Refer to POC result
[2023-05-09 09:19] LABS: VBG Base Excess -21.8 mmol/L; VBG HCO3 7 mmol/L (22-26); VBG pCO2 26 mmHg; VBG pH 7.04 (7.32-7.43); VBG pO2 51 mmHg
[2023-05-09 09:26] LABS: COVID-19 Test Negative (Negative); IDNOW Serial# BCCEAD1C
[2023-05-09] MEDS: ondansetron HCL 4 MG/2 ML VIAL IVPUSH ×2 (09:28→19:47)
--- NOTE | 2023-05-09 09:34 | PC.NURSE ---
patient presents with nausea and vomiting, patient states he ran out of his long acting insulin 2 weeks ago due to cost. patient poc reading high, placed bilat 20# IV, Left AC and right bicep, patient medicated with zofran per mar for vomiting. patient is vomiting dark brown emesis.
[2023-05-09 09:41] LABS: Troponin-I High Sensitivity < 2.7 ng/L (<3.5-35.0)
[2023-05-09 09:59] LABS: Glucose, Whole Blood > 600 mg/dL (60-115)
[2023-05-09 10:01] LABS: Alanine Aminotransferase 28 U/L (0-40); Albumin Level 4.9 g/dL (3.5-5.0); Alkaline Phosphatase 112 U/L (39-117); Anion Gap 40 (12-20); Aspartate Amino Transferase 14 U/L (5-37); Bilirubin Direct 0.1 mg/dL (0.0-0.5); Bilirubin Total 0.6 mg/dL (0.0-1.0); Blood Urea Nitrogen 23 mg/dL (9-16); Carbon Dioxide 7 mmol/L (22-29); Chloride 87 mmol/L (96-108); Creatinine Clr Calc Pharmacy 40.6; Estimated Glomerular Filt Rate 35; Glucose Random 762 mg/dL (60-115); Lipase 11 U/L (8-78); Magnesium 2.4 mg/dL (1.6-2.6); Potassium 5.3 mmol/L (3.3-5.1); Sodium 129 mmol/L (135-145); Total Protein 8.4 g/dL (6.5-8.0)
--- NOTE | 2023-05-09 10:15 | PC.NURSE ---
patient noted to have run of vtach at 0957, patient resting quietly in bed, patient placed on paper pads with code cart outside room. patient was awake and alert during episode.
[2023-05-09] MEDS: Calcium Gluconate/NaCl,Iso-Osm 1 GM/50 ML PLAST..BAG IV (10:20)
[2023-05-09] MEDS: Insulin Regular, Human 100 UNIT/ML 3 ML VIAL 10 UNIT IVPUSH (10:21)
[2023-05-09] MEDS: Sodium Bicarbonate 8.4% 50 MEQ/50 ML SYRINGE IVPUSH (10:22)
[2023-05-09] MEDS: Insulin Regular/NS 100 UNIT/100 ML PLAST..BAG 5.9 UNIT IVCONT (10:31)
[2023-05-09] MEDS: Lactated Ringers 1,000 ML 200 ML IVCONT ×3 (10:35→20:27)
[2023-05-09 10:58] LABS: Glucose, Whole Blood > 600 mg/dL (60-115)
[2023-05-09 11:10] LABS: Reflex Lactate? Lactic Acid Added
--- NOTE | 2023-05-09 11:26 | PC.NURSE ---
patient resting in bed quietly, appears to be asleep, arousable to verbal stimuli, patient medicated per MAR, respirations equal and unlabored patient shows no signs of distress.
[2023-05-09 11:46] LABS: Appearance Urine Clear; Color Urine Straw; Glucose Urine UA >=1000 mg/dL (Negative); Leukocyte Esterase Urine Negative (Negative); Nitrite Urine Negative (Negative); PH 5.5 (5.0-9.0); Specific Gravity - Urine 1.025 (1.005-1.025); UMIC TRIGGER UACC YES; Urine Blood Negative (Negative); Urine Ketones >=80 mg/dL (Negative); Urine Protein Negative (Neg-Trace)
[2023-05-09 11:49] LABS: Bacteria Urine None Seen (None Seen); Hyaline Casts Urine 0-2 /LPF (0-2); RBC Urine 0-2 /HPF (0-2); Squamous Epithelial Cell Urine 0-2 /HPF (0-2); WBC Urine 0-5 /HPF (0-5)
[2023-05-09 12:02] LABS: Glucose, Whole Blood 573 mg/dL (60-115)
[2023-05-09 12:02] LABS: Glucose, Whole Blood > 600 mg/dL (60-115)
[2023-05-09 12:03] LABS: Amphetamine Screen Urine Not Detected (Not Detect); Barbiturates, Urine Not Detected (Not Detect); Benzodiazepines Screen Urine Not Detected (Not Detect); Cannabinoid Screen Urine Not Detected (Not Detect); Cocaine Screen Urine Not Detected (Not Detect); Fentanyl, urine Not Detected (Not Detect); Opiate Screen Urine Not Detected (Not Detect); Phencyclidine Screen Urine POSITIVE (Not Detect)
[2023-05-09 12:03] LABS: ~Lactic Acid-LAB USE ONLY 3.2 mmol/L (0.5-2.0)
--- NOTE | 2023-05-09 12:44 | PM.CCHP ---
History of Present Illness Date of Service: 05/09/23 Chief Complaint: Hyperglycemia 32-year-old gentleman with underlying diabetes mellitus, off insulin for 2 weeks secondary to insurance issues presented to emergency room complaining of nausea, vomiting, polyuria, and polydipsia. On ER evaluation patient with profound diabetic ketoacidosis, started on IV fluids and insulin drip and admitted to the intensive care unit. Review of Systems Constitutional: Constitutional: Denies daytime sleepiness, Denies excessive sweating, Denies fatigue, Denies fever(s), Denies lethargy, Denies malaise, Denies night sweats, Denies snoring and Denies weight loss Eyes: Eyes: Denies blurry vision and Denies itchy eyes ENT: Denies nasal congestion, Denies post nasal drip, Denies sinus pain, Denies sinus pressure and Denies other ( Thrush) Cardiovascular: Cardiovascular: Denies chest pain, Denies pedal edema, Denies dyspnea, Denies orthopnea and Denies paroxysmal nocturnal dyspnea Respiratory: Respiratory: Denies cough, Denies hemoptysis, Denies excessive phlegm production, Denies dyspnea, Denies snoring and Denies wheezing Gastrointestinal: Gastrointestinal: Denies abdominal pain, Reports GI cramping, Denies heartburn, Reports nausea and Reports vomiting Musculoskeletal: Musculoskeletal: Denies myalgias, Denies arthralgias and Denies joint swelling Integumentary/Breasts: Skin/Breast: Denies rash Neurologic: Denies memory loss and Denies seizure-like activity Psychiatric: Psychiatric: Denies abnormal sleep pattern, Denies anxiety and Denies memory loss Endocrine: Endocrine: Denies excessive sweating, Denies fatigue, Denies heat intolerance, Reports polydipsia and Reports polyuria Hematologic/Lymphatic: Hematologic/Lymphatic: Denies easy bruising Allergic/Immunologic: Allergic/Immunologic: Denies itchy eyes, Denies seasonal rhinorrhea and Denies wheezing PMFSH Past Medical History Medical History IDDM (insulin dependent diabetes mellitus) Social History Social History Household Members: Significant Other Household Members Other:: girlfriend Housing: Apartment Do you presently have visiting nurse or other home services: No Patient Tobacco Use Status: Never used Tobacco Use of substances other than those prescribed or required for medical reasons: No Substance Use Type: Heroin and Marijuana Have you been hit, kicked, punched, or otherwise hurt by someone within the past year? If so, by whom?: No Do you feel safe in your current relationship?: Yes Is there a partner from a previous relationship who is making you feel unsafe now?: No Are you made to feel afraid or neglected: No Spiritual Healthcare Practices: n/a Amish Healthcare Practices: n/a Cultural Healthcare Practices: n/a Advance Directives: No Advance Directives Information Provided: No Do you have thoughts of harming others: None Do you have a plan to hurt others: No Plan Recently lost weight without trying: Unsure Nutrition Risks: Diabetes new onset/Uncontrolled Poor oral hygiene: No Meds Allergies Allergy/AdvReac Type Severity Reaction Status Date / Time No Known Allergies Allergy Unverified 02/20/20 16:58 N.K.D.A. Allergy Unknown Uncoded 10/02/18 00:00 Active Medications: Current Medications Dextrose (Dextrose 50 % 25 Gm/50 Ml Syringe) 25 gm IVPUSH Q30M PRN PRN Reason: BG < 70 Heparin Sodium (Porcine) (Heparin Sodium,Porcine 5,000 Unit/Ml Vial) 5,000 unit SUBCUT Q8H LAUREL Insulin Human Regular (Myxredlin) 100 unit in 100 mls @ 5.9 mls/hr IVCONT .[id number] LAUREL; Protocol Last Titration: 05/09/23 11:39 Dose: 2.9 unit/hr, 2.9 mls/hr Lactated Ringer's (Lr) 1,000 mls @ 200 mls/hr IVCONT .Q5H LAUREL Last Admin: 05/09/23 10:35 Dose: 200 mls/hr Home Medications Medication Instructions Recorded Confirmed Last Taken Type insulin glargine 100 unit/mL (3 30 unit subcut BEDTIME 05/09/23 Unknown History mL) subcutaneous pen (Lantus Solostar U-100 Insulin) Physical Exam Vital Signs: Vital Signs: Last Vital Signs Temp 98.2 F 05/09/23 12:00 Pulse 94 05/09/23 12:00 Resp 14 05/09/23 12:00 BP 134/89 05/09/23 12:00 Pulse Ox 100 05/09/23 12:00 O2 Del Method Room Air 12/05/23 12:11 BMI result Body Mass Index 18.5 Results Labs 05/09/23 09:07 05/09/23 09:06 Labs: Laboratory Results - last 24 hr 05/09/23 05/09/23 05/09/23 08:42 08:57 09:05 MCV MCH MCHC RDW Plt Count MPV Immature Gran % (Auto) Neut % (Auto) Lymph % (Auto) [place] % (Auto) Eos % (Auto) Baso % (Auto) Lymph # (Auto) [place] # (Auto) Eos # (Auto) Baso # (Auto) Abs Immat Gran (auto) Absolute Neuts (auto) Absolute Nucleated RBC Nucleated RBC % (auto) VBG pH VBG pCO2 VBG pO2 VBG HCO3 VBG O2 Saturation VBG Base Excess Anion Gap Estim Creat Clear Calc Estimated GFR POC Glucose > 600 H* > 600 H* Random Glucose Lactic Acid Lactic Acid F/U @ 2Hr Calcium Magnesium Total Bilirubin Direct Bilirubin AST ALT Alkaline Phosphatase Total Protein Albumin Lipase Beta-Hydroxybutyrate Urine Color Urine Appearance Urine pH Ur Specific [employer] Urine Protein Urine Glucose (UA) Urine Ketones Urine Blood Urine Nitrite Ur Leukocyte Esterase Urine RBC Urine WBC Ur Squamous Epith Cells Urine Bacteria Hyaline Casts Urine Opiates Screen Urine Fentanyl Screen Ur Barbiturates Screen Ur Phencyclidine Scrn Ur Amphetamines Screen U Benzodiazepines Scrn Urine Cocaine Screen U Marijuana (THC) Screen COVID-19 (LYNN) Negative COVID-19 Clin Com See Note 05/09/23 05/09/23 05/09/23 09:06 09:07 09:10 MCV 96.8 MCH 31.6 MCHC 32.6 RDW 11.3 Plt Count 369 D MPV 10.3 Immature Gran % (Auto) 0.7 H Neut % (Auto) 81.2 H Lymph % (Auto) 15.4 L [place] % (Auto) 2.2 Eos % (Auto) 0.1 Baso % (Auto) 0.4 Lymph # (Auto) 2.5 [place] # (Auto) 0.4 Eos # (Auto) 0.0 Baso # (Auto) 0.1 Abs Immat Gran (auto) 0.12 H Absolute Neuts (auto) 13.2 H Absolute Nucleated RBC 0.000 Nucleated RBC % (auto) 0.0 VBG pH 7.04 L* VBG pCO2 26 VBG pO2 51 VBG HCO3 7 L VBG O2 Saturation 70.0 VBG Base Excess -21.8 Anion Gap 40 H Estim Creat Clear Calc 40.6 Estimated GFR 35 POC Glucose Random Glucose 762 H* Lactic Acid 5.0 H* Lactic Acid F/U @ 2Hr Calcium 10.0 Magnesium 2.4 Total Bilirubin 0.6 Direct Bilirubin 0.1 AST 14 ALT 28 Alkaline Phosphatase 112 Total Protein 8.4 H Albumin 4.9 Lipase 11 Beta-Hydroxybutyrate 12.90 H Urine Color Urine Appearance Urine pH Ur Specific [employer] Urine Protein Urine Glucose (UA) Urine Ketones Urine Blood Urine Nitrite Ur Leukocyte Esterase Urine RBC Urine WBC Ur Squamous Epith Cells Urine Bacteria Hyaline Casts Urine Opiates Screen Urine Fentanyl Screen Ur Barbiturates Screen Ur Phencyclidine Scrn Ur Amphetamines Screen U Benzodiazepines Scrn Urine Cocaine Screen U Marijuana (THC) Screen COVID-19 (LYNN) [employer] 05/09/23 05/09/23 05/09/23 09:52 10:49 11:32 MCV MCH MCHC RDW Plt Count MPV Immature Gran % (Auto) Neut % (Auto) Lymph % (Auto) [place] % (Auto) Eos % (Auto) Baso % (Auto) Lymph # (Auto) [place] # (Auto) Eos # (Auto) Baso # (Auto) Abs Immat Gran (auto) Absolute Neuts (auto) Absolute Nucleated RBC Nucleated RBC % (auto) VBG pH VBG pCO2 VBG pO2 VBG HCO3 VBG O2 Saturation VBG Base Excess Anion Gap Estim Creat Clear Calc Estimated GFR POC Glucose > 600 H* > 600 H* 573 H* Random Glucose Lactic Acid Lactic Acid F/U @ 2Hr Calcium Magnesium Total Bilirubin Direct Bilirubin AST ALT Alkaline Phosphatase Total Protein Albumin Lipase Beta-Hydroxybutyrate Urine Color Urine Appearance Urine pH Ur Specific [employer] Urine Protein Urine Glucose (UA) Urine Ketones Urine Blood Urine Nitrite Ur Leukocyte Esterase Urine RBC Urine WBC Ur Squamous Epith Cells Urine Bacteria Hyaline Casts Urine Opiates Screen Urine Fentanyl Screen Ur Barbiturates Screen Ur Phencyclidine Scrn Ur Amphetamines Screen U Benzodiazepines Scrn Urine Cocaine Screen U Marijuana (THC) Screen COVID-19 (LYNN) [employer] 05/09/23 05/09/23 11:34 11:38 MCV MCH MCHC RDW Plt Count MPV Immature Gran % (Auto) Neut % (Auto) Lymph % (Auto) [place] % (Auto) Eos % (Auto) Baso % (Auto) Lymph # (Auto) [place] # (Auto) Eos # (Auto) Baso # (Auto) Abs Immat Gran (auto) Absolute Neuts (auto) Absolute Nucleated RBC Nucleated RBC % (auto) VBG pH VBG pCO2 VBG pO2 VBG HCO3 VBG O2 Saturation VBG Base Excess Anion Gap Estim Creat Clear Calc Estimated GFR POC Glucose Random Glucose Lactic Acid Lactic Acid F/U @ 2Hr 3.2 H* Calcium Magnesium Total Bilirubin Direct Bilirubin AST ALT Alkaline Phosphatase Total Protein Albumin Lipase Beta-Hydroxybutyrate Urine Color Straw Urine Appearance Clear Urine pH 5.5 Ur Specific [employer] 1.025 Urine Protein Negative Urine Glucose (UA) >=1000 H Urine Ketones >=80 Urine Blood Negative Urine Nitrite Negative Ur Leukocyte Esterase Negative Urine RBC 0-2 Urine WBC 0-5 Ur Squamous Epith Cells 0-2 Urine Bacteria None Seen Hyaline Casts 0-2 Urine Opiates Screen Not Detected Urine Fentanyl Screen Not Detected Ur Barbiturates Screen Not Detected Ur Phencyclidine Scrn POSITIVE H Ur Amphetamines Screen Not Detected U Benzodiazepines Scrn Not Detected Urine Cocaine Screen Not Detected U Marijuana (THC) Screen Not Detected COVID-19 (LYNN) COVID-19 Clin Com Assessment and Plan (1) DKA (diabetic ketoacidosis): Status: Acute Plan Assessment: 32-year-old gentleman with underlying diabetes mellitus of insulin for 2 weeks secondary to insurance recent admitted with diabetic ketoacidosis. Plan: Neuro: No acute issues. Cardiac: No acute issues. Pulmonary: No acute issues. Renal: No acute issues. Endo: Diabetic ketoacidosis, continue IV fluid and insulin drip. Titrate off insulin drip as tolerated. GI: No acute issues. ID: No acute issues Heme/Onc: No acute issues. Psych: No acute issues. Miscellaneous: No acute issues. Prophylaxis: Heparin Diet: Nothing by mouth
[2023-05-09 13:05] LABS: Glucose, Whole Blood 433 mg/dL (60-115)
[2023-05-09] MEDS: Heparin Sodium,Porcine 5,000 UNIT/ML VIAL 5000 UNIT SUBCUT ×2 (13:13→19:42)
--- NOTE | 2023-05-09 13:17 | PC.NURSE ---
Patient picked up in ER by this RN @ approx 1150. Patient brought to ICU @ 1155. Patient admitted for DKA. Patient lethargic, but oriented & arousable. Complaining of dry mouth. Patient voided in urinal. Vomited small amt brown emesis. Had received zofran in ED. Dr Peralta made aware and ordered PRN zofran for when due. Patient resting at this time. Insulin drip running as ordered - 1300 POC 433, Dr Peralta made aware (see MAR). HR 80's to 90's SR. Patient calm, cooperative with carer. Patient oriented to unit - call lam in place, bed alarm on per protocol.
[2023-05-09 13:39] LABS: Reflex Lactate? 2 Y
--- NOTE | 2023-05-09 13:45 | PHA.MEDREC ---
Pharmacy Consult ? Medication Reconciliation Pharmacy has completed the medication reconciliation.med rec done using discharge from 05/03/23 and claim history. pt has not used lantus in 2 weeks due to lapse in insurance coverage.
[2023-05-09 14:09] LABS: Glucose, Whole Blood 381 mg/dL (60-115)
[2023-05-09 14:16] LABS: Anion Gap 32 (12-20); Blood Urea Nitrogen 21 mg/dL (9-16); Calcium 9.2 mg/dL (8.4-10.2); Carbon Dioxide 8 mmol/L (22-29); Chloride 100 mmol/L (96-108); Creatinine Clr Calc Pharmacy 59.5; Estimated Glomerular Filt Rate 54; Glucose Random 402 mg/dL (60-115); Potassium 4.6 mmol/L (3.3-5.1); Sodium 135 mmol/L (135-145)
[2023-05-09 15:08] LABS: Glucose, Whole Blood 392 mg/dL (60-115)
[2023-05-09 16:09] LABS: Glucose, Whole Blood 338 mg/dL (60-115)
[2023-05-09 17:06] LABS: Glucose, Whole Blood 254 mg/dL (60-115)
[2023-05-09 18:16] LABS: Glucose, Whole Blood 267 mg/dL (60-115)
[2023-05-09 19:04] LABS: Glucose, Whole Blood 291 mg/dL (60-115)
[2023-05-09 20:02] LABS: Glucose, Whole Blood 263 mg/dL (60-115)
[2023-05-09 21:03] LABS: Glucose, Whole Blood 222 mg/dL (60-115)
[2023-05-09 21:04] LABS: Anion Gap 23 (12-20); Blood Urea Nitrogen 16 mg/dL (9-16); Calcium 8.9 mg/dL (8.4-10.2); Carbon Dioxide 11 mmol/L (22-29); Chloride 107 mmol/L (96-108); Creatinine Clr Calc Pharmacy 70.3; Estimated Glomerular Filt Rate > 60; Glucose Random 253 mg/dL (60-115); Potassium 4.2 mmol/L (3.3-5.1); Sodium 137 mmol/L (135-145)
[2023-05-09] MEDS: Dextrose 5 % and Lactated Ring 1,000 ML 150 ML IVCONT (21:23)
[2023-05-09 22:02] LABS: Glucose, Whole Blood 243 mg/dL (60-115)
[2023-05-09 23:10] LABS: Glucose, Whole Blood 188 mg/dL (60-115)
[2023-05-10] VITALS (19 sets, daily range): BP systolic 117–153; BP diastolic 64–98; PULSE 66–84; RESP 10–18; TEMP 36.3–37.1; O2SAT 98–100; BMI 19.0
[2023-05-10 00:09] LABS: Glucose, Whole Blood 178 mg/dL (60-115)
[2023-05-10] MEDS: ondansetron HCL 4 MG/2 ML VIAL IVPUSH (00:21)
[2023-05-10 01:08] LABS: Glucose, Whole Blood 161 mg/dL (60-115)
[2023-05-10 01:39] LABS: Anion Gap 16 (12-20); Blood Urea Nitrogen 15 mg/dL (9-16); Carbon Dioxide 20 mmol/L (22-29); Chloride 110 mmol/L (96-108); Creatinine Clr Calc Pharmacy 67.1; Estimated Glomerular Filt Rate > 60; Glucose Random 169 mg/dL (60-115); Potassium 3.7 mmol/L (3.3-5.1); Sodium 142 mmol/L (135-145)
[2023-05-10 02:01] LABS: Glucose, Whole Blood 135 mg/dL (60-115)
[2023-05-10 03:03] LABS: Glucose, Whole Blood 136 mg/dL (60-115)
[2023-05-10] MEDS: Dextrose 5 % and Lactated Ring 1,000 ML 150 ML IVCONT ×2 (03:37→09:35)
[2023-05-10 04:04] LABS: Glucose, Whole Blood 177 mg/dL (60-115)
[2023-05-10 04:50] LABS: VBG Base Excess -4.8 mmol/L; VBG HCO3 17 mmol/L (22-26); VBG pCO2 26 mmHg; VBG pH 7.42 (7.32-7.43); VBG pO2 116 mmHg
[2023-05-10 05:03] LABS: MANUAL DIFF FLAG NO
[2023-05-10 05:03] LABS: Glucose, Whole Blood 209 mg/dL (60-115)
[2023-05-10 05:05] LABS: Basophils Percent Auto 0.1 % (0-2); Eosinophils Percent Auto 0.1 % (0-4); Hematocrit 41.3 % (42.0-52.0); Hemoglobin 14.5 g/dl (14.0-18.0); Imm Gran Abs Auto 0.04 X10*3/uL (0.00-0.03); Imm Gran Pct Auto 0.3 % (0.0-0.4); Lymphocytes Absolute Auto 1.4 X10*3/uL (1.2-4.9); Lymphocytes Percent Auto 10.2 % (20-40); Mean Corpuscular HGB Conc 35.1 g/dl (31.0-36.0); Mean Corpuscular Hemoglobin 32.1 pg (27.0-33.0); Mean Corpuscular Volume 91.4 fL (80.0-98.0); Monocytes Absolute Auto 0.7 X10*3/uL (0.1-1.2); Monocytes Percent Auto 5.1 % (2-11); Neutrophils Absolute Auto 11.2 x10*3/uL (2.0-8.3); Neutrophils Percent Auto 84.2 % (45-73); Platelet Count 235 X10*3/uL (160-400); Red Blood Count 4.52 X10*6/uL (4.60-5.80); Red Cell Distribution Width 11.3 % (11.0-16.0); White Blood Count 13.4 X10*3/uL (4.8-10.8)
[2023-05-10 05:12] LABS: Venous Blood Gas Refer to POC result
[2023-05-10 05:23] LABS: Albumin Level 3.6 g/dL (3.5-5.0); Anion Gap 19 (12-20); Blood Urea Nitrogen 14 mg/dL (9-16); Calcium 8.7 mg/dL (8.4-10.2); Carbon Dioxide 17 mmol/L (22-29); Chloride 108 mmol/L (96-108); Creatinine Clr Calc Pharmacy 73.8; Estimated Glomerular Filt Rate > 60; Glucose Random 216 mg/dL (60-115); Magnesium 2.1 mg/dL (1.6-2.6); Phosphorus 2.3 mg/dL (2.7-4.5); Potassium 3.8 mmol/L (3.3-5.1); Sodium 140 mmol/L (135-145)
[2023-05-10] MEDS: Potassium Phosphate/NS 15 MMOL/250 ML PLAST..BAG 62.5 MMOL IV (05:43)
[2023-05-10 06:00] LABS: Glucose, Whole Blood 214 mg/dL (60-115)
[2023-05-10 07:07] LABS: Glucose, Whole Blood 204 mg/dL (60-115)
[2023-05-10 08:07] LABS: Glucose, Whole Blood 184 mg/dL (60-115)
[2023-05-10 09:05] LABS: Glucose, Whole Blood 159 mg/dL (60-115)
--- NOTE | 2023-05-10 09:07 | P.PNCC_ITS ---
Subjective Subjective Date of Service: 05/10/23 Interval History: 32-year-old gentleman with underlying diabetes mellitus, off insulin for 2 weeks secondary to insurance issues presented to emergency room complaining of nausea, vomiting, polyuria, and polydipsia. On ER evaluation patient with profound diabetic ketoacidosis, started on IV fluids and insulin drip and admitted to the intensive care unit. No events overnight. Hyperglycemia, anion gap, and acidosis are improving. Critical Care Time (minutes): 0 Physical Exam 2 Vital Signs: Vital Signs: Last Vital Signs Temp 98.5 F 05/10/23 08:00 Pulse 74 05/10/23 08:00 Resp 12 05/10/23 08:00 BP 118/75 05/10/23 08:00 Pulse Ox 99 05/10/23 08:00 O2 Del Method Room Air 05/10/23 08:00 BMI result Body Mass Index 19.0 Const: General: no acute distress, alert and awake Eyes: Sclerae: sclerae normal EOM: EOMs intact bilaterally Neck: Neck: Yes no lymphadenopathy, Yes trachea midline and Yes supple Resp: Effort & Inspection: normal respiratory effort and no respiratory distress Auscultation: clear to auscultation bilaterally Cardio: Rate: regular rate Rhythm: regular rhythm Heart sounds: no gallops, no murmurs and no rubs GI: Palpation (GI): Soft to palpation and Other GI palpation findings present ( Nontender) Auscultation: normal bowel sounds Extrem: General: Yes no pedal edema, No clubbing and No cyanosis Objective Data Labs 05/10/23 04:38 05/10/23 04:38 Labs: Laboratory Results - last 24 hr 05/09/23 05/09/23 05/09/23 08:42 08:57 09:05 WBC RBC Hgb Hct MCV MCH MCHC RDW Plt Count MPV Immature Gran % (Auto) Neut % (Auto) Lymph % (Auto) [place] % (Auto) Eos % (Auto) Baso % (Auto) Lymph # (Auto) [place] # (Auto) Eos # (Auto) Baso # (Auto) Abs Immat Gran (auto) Absolute Neuts (auto) Absolute Nucleated RBC Nucleated RBC % (auto) VBG pH VBG pCO2 VBG pO2 VBG HCO3 VBG O2 Saturation VBG Base Excess Sodium Potassium Chloride Carbon Dioxide Anion Gap BUN Creatinine Estim Creat Clear Calc Estimated GFR POC Glucose > 600 H* > 600 H* Random Glucose Lactic Acid Lactic Acid F/U @ 2Hr Lactic Acid F/U @ 4Hr Calcium Phosphorus Magnesium Total Bilirubin Direct Bilirubin AST ALT Alkaline Phosphatase Troponin I High Sens Total Protein Albumin Lipase Beta-Hydroxybutyrate Urine Color Urine Appearance Urine pH Ur Specific [place] Urine Protein Urine Glucose (UA) Urine Ketones Urine Blood Urine Nitrite Ur Leukocyte Esterase Urine RBC Urine WBC Ur Squamous Epith Cells Urine Bacteria Hyaline Casts Urine Opiates Screen Urine Fentanyl Screen Ur Barbiturates Screen Ur Phencyclidine Scrn Ur Amphetamines Screen U Benzodiazepines Scrn Urine Cocaine Screen U Marijuana (THC) Screen COVID-19 (LYNN) Negative COVID-19 Clin Com See Note 05/09/23 05/09/23 05/09/23 09:06 09:07 09:10 WBC 16.2 H RBC 5.35 Hgb 16.9 Hct 51.8 MCV 96.8 MCH 31.6 MCHC 32.6 RDW 11.3 Plt Count 369 D MPV 10.3 Immature Gran % (Auto) 0.7 H Neut % (Auto) 81.2 H Lymph % (Auto) 15.4 L [place] % (Auto) 2.2 Eos % (Auto) 0.1 Baso % (Auto) 0.4 Lymph # (Auto) 2.5 [place] # (Auto) 0.4 Eos # (Auto) 0.0 Baso # (Auto) 0.1 Abs Immat Gran (auto) 0.12 H Absolute Neuts (auto) 13.2 H Absolute Nucleated RBC 0.000 Nucleated RBC % (auto) 0.0 VBG pH 7.04 L* VBG pCO2 26 VBG pO2 51 VBG HCO3 7 L VBG O2 Saturation 70.0 VBG Base Excess -21.8 Sodium 129 L Potassium 5.3 H Chloride 87 L Carbon Dioxide 7 L* D Anion Gap 40 H BUN 23 H Creatinine 2.18 H Estim Creat Clear Calc 40.6 Estimated GFR 35 POC Glucose Random Glucose 762 H* Lactic Acid 5.0 H* Lactic Acid F/U @ 2Hr Lactic Acid F/U @ 4Hr Calcium 10.0 Phosphorus Magnesium 2.4 Total Bilirubin 0.6 Direct Bilirubin 0.1 AST 14 ALT 28 Alkaline Phosphatase 112 Troponin I High Sens < 2.7 Total Protein 8.4 H Albumin 4.9 Lipase 11 Beta-Hydroxybutyrate 12.90 H Urine Color Urine Appearance Urine pH Ur Specific [place] Urine Protein Urine Glucose (UA) Urine Ketones Urine Blood Urine Nitrite Ur Leukocyte Esterase Urine RBC Urine WBC Ur Squamous Epith Cells Urine Bacteria Hyaline Casts Urine Opiates Screen Urine Fentanyl Screen Ur Barbiturates Screen Ur Phencyclidine Scrn Ur Amphetamines Screen U Benzodiazepines Scrn Urine Cocaine Screen U Marijuana (THC) Screen COVID-19 (LYNN) COVID-19 [email or web address] 05/09/23 05/09/23 05/09/23 09:52 10:49 11:32 WBC RBC Hgb Hct MCV MCH MCHC RDW Plt Count MPV Immature Gran % (Auto) Neut % (Auto) Lymph % (Auto) [place] % (Auto) Eos % (Auto) Baso % (Auto) Lymph # (Auto) [place] # (Auto) Eos # (Auto) Baso # (Auto) Abs Immat Gran (auto) Absolute Neuts (auto) Absolute Nucleated RBC Nucleated RBC % (auto) VBG pH VBG pCO2 VBG pO2 VBG HCO3 VBG O2 Saturation VBG Base Excess Sodium Potassium Chloride Carbon Dioxide Anion Gap BUN Creatinine Estim Creat Clear Calc Estimated GFR POC Glucose > 600 H* > 600 H* 573 H* Random Glucose Lactic Acid Lactic Acid F/U @ 2Hr Lactic Acid F/U @ 4Hr Calcium Phosphorus Magnesium Total Bilirubin Direct Bilirubin AST ALT Alkaline Phosphatase Troponin I High Sens Total Protein Albumin Lipase Beta-Hydroxybutyrate Urine Color Urine Appearance Urine pH Ur Specific [place] Urine Protein Urine Glucose (UA) Urine Ketones Urine Blood Urine Nitrite Ur Leukocyte Esterase Urine RBC Urine WBC Ur Squamous Epith Cells Urine Bacteria Hyaline Casts Urine Opiates Screen Urine Fentanyl Screen Ur Barbiturates Screen Ur Phencyclidine Scrn Ur Amphetamines Screen U Benzodiazepines Scrn Urine Cocaine Screen U Marijuana (THC) Screen COVID-19 (LYNN) COVID-19 [email or web address] 05/09/23 05/09/23 05/09/23 11:34 11:38 13:01 WBC RBC Hgb Hct MCV MCH MCHC RDW Plt Count MPV Immature Gran % (Auto) Neut % (Auto) Lymph % (Auto) [place] % (Auto) Eos % (Auto) Baso % (Auto) Lymph # (Auto) [place] # (Auto) Eos # (Auto) Baso # (Auto) Abs Immat Gran (auto) Absolute Neuts (auto) Absolute Nucleated RBC Nucleated RBC % (auto) VBG pH VBG pCO2 VBG pO2 VBG HCO3 VBG O2 Saturation VBG Base Excess Sodium Potassium Chloride Carbon Dioxide Anion Gap BUN Creatinine Estim Creat Clear Calc Estimated GFR POC Glucose 433 H* Random Glucose Lactic Acid Lactic Acid F/U @ 2Hr 3.2 H* Lactic Acid F/U @ 4Hr Calcium Phosphorus Magnesium Total Bilirubin Direct Bilirubin AST ALT Alkaline Phosphatase Troponin I High Sens Total Protein Albumin Lipase Beta-Hydroxybutyrate Urine Color Straw Urine Appearance Clear Urine pH 5.5 Ur Specific [place] 1.025 Urine Protein Negative Urine Glucose (UA) >=1000 H Urine Ketones >=80 Urine Blood Negative Urine Nitrite Negative Ur Leukocyte Esterase Negative Urine RBC 0-2 Urine WBC 0-5 Ur Squamous Epith Cells 0-2 Urine Bacteria None Seen Hyaline Casts 0-2 Urine Opiates Screen Not Detected Urine Fentanyl Screen Not Detected Ur Barbiturates Screen Not Detected Ur Phencyclidine Scrn POSITIVE H Ur Amphetamines Screen Not Detected U Benzodiazepines Scrn Not Detected Urine Cocaine Screen Not Detected U Marijuana (THC) Screen Not Detected COVID-19 (LYNN) COVID-19 Clin [facility] 05/09/23 05/09/23 05/09/23 13:50 13:51 14:06 WBC RBC Hgb Hct MCV MCH MCHC RDW Plt Count MPV Immature Gran % (Auto) Neut % (Auto) Lymph % (Auto) [place] % (Auto) Eos % (Auto) Baso % (Auto) Lymph # (Auto) [place] # (Auto) Eos # (Auto) Baso # (Auto) Abs Immat Gran (auto) Absolute Neuts (auto) Absolute Nucleated RBC Nucleated RBC % (auto) VBG pH VBG pCO2 VBG pO2 VBG HCO3 VBG O2 Saturation VBG Base Excess Sodium 135 Potassium 4.6 Chloride 100 Carbon Dioxide 8 L* Anion Gap 32 H BUN 21 H Creatinine 1.50 H Estim Creat Clear Calc 59.5 Estimated GFR 54 POC Glucose 381 H* Random Glucose 402 H* Lactic Acid Lactic Acid F/U @ 2Hr Lactic Acid F/U @ 4Hr 2.0 Calcium 9.2 D Phosphorus Magnesium Total Bilirubin Direct Bilirubin AST ALT Alkaline Phosphatase Troponin I High Sens Total Protein Albumin Lipase Beta-Hydroxybutyrate Urine Color Urine Appearance Urine pH Ur Specific [place] Urine Protein Urine Glucose (UA) Urine Ketones Urine Blood Urine Nitrite Ur Leukocyte Esterase Urine RBC Urine WBC Ur Squamous Epith Cells Urine Bacteria Hyaline Casts Urine Opiates Screen Urine Fentanyl Screen Ur Barbiturates Screen Ur Phencyclidine Scrn Ur Amphetamines Screen U Benzodiazepines Scrn Urine Cocaine Screen U Marijuana (THC) Screen COVID-19 (LYNN) COVID-19 [email or web address] 05/09/23 05/09/23 05/09/23 15:04 16:05 17:02 WBC RBC Hgb Hct MCV MCH MCHC RDW Plt Count MPV Immature Gran % (Auto) Neut % (Auto) Lymph % (Auto) [place] % (Auto) Eos % (Auto) Baso % (Auto) Lymph # (Auto) [place] # (Auto) Eos # (Auto) Baso # (Auto) Abs Immat Gran (auto) Absolute Neuts (auto) Absolute Nucleated RBC Nucleated RBC % (auto) VBG pH VBG pCO2 VBG pO2 VBG HCO3 VBG O2 Saturation VBG Base Excess Sodium Potassium Chloride Carbon Dioxide Anion Gap BUN Creatinine Estim Creat Clear Calc Estimated GFR POC Glucose 392 H* 338 H 254 H Random Glucose Lactic Acid Lactic Acid F/U @ 2Hr Lactic Acid F/U @ 4Hr Calcium Phosphorus Magnesium Total Bilirubin Direct Bilirubin AST ALT Alkaline Phosphatase Troponin I High Sens Total Protein Albumin Lipase Beta-Hydroxybutyrate Urine Color Urine Appearance Urine pH Ur Specific [place] Urine Protein Urine Glucose (UA) Urine Ketones Urine Blood Urine Nitrite Ur Leukocyte Esterase Urine RBC Urine WBC Ur Squamous Epith Cells Urine Bacteria Hyaline Casts Urine Opiates Screen Urine Fentanyl Screen Ur Barbiturates Screen Ur Phencyclidine Scrn Ur Amphetamines Screen U Benzodiazepines Scrn Urine Cocaine Screen U Marijuana (THC) Screen COVID-19 (LYNN) COVID-19 [email or web address] 05/09/23 05/09/23 05/09/23 18:12 19:00 19:58 WBC RBC Hgb Hct MCV MCH MCHC RDW Plt Count MPV Immature Gran % (Auto) Neut % (Auto) Lymph % (Auto) [place] % (Auto) Eos % (Auto) Baso % (Auto) Lymph # (Auto) [place] # (Auto) Eos # (Auto) Baso # (Auto) Abs Immat Gran (auto) Absolute Neuts (auto) Absolute Nucleated RBC Nucleated RBC % (auto) VBG pH VBG pCO2 VBG pO2 VBG HCO3 VBG O2 Saturation VBG Base Excess Sodium Potassium Chloride Carbon Dioxide Anion Gap BUN Creatinine Estim Creat Clear Calc Estimated GFR POC Glucose 267 H 291 H 263 H Random Glucose Lactic Acid Lactic Acid F/U @ 2Hr Lactic Acid F/U @ 4Hr Calcium Phosphorus Magnesium Total Bilirubin Direct Bilirubin AST ALT Alkaline Phosphatase Troponin I High Sens Total Protein Albumin Lipase Beta-Hydroxybutyrate Urine Color Urine Appearance Urine pH Ur Specific [place] Urine Protein Urine Glucose (UA) Urine Ketones Urine Blood Urine Nitrite Ur Leukocyte Esterase Urine RBC Urine WBC Ur Squamous Epith Cells Urine Bacteria Hyaline Casts Urine Opiates Screen Urine Fentanyl Screen Ur Barbiturates Screen Ur Phencyclidine Scrn Ur Amphetamines Screen U Benzodiazepines Scrn Urine Cocaine Screen U Marijuana (THC) Screen COVID-19 (LYNN) COVID-19 Clin Com 05/09/23 05/09/23 05/09/23 20:11 21:00 21:59 WBC RBC Hgb Hct MCV MCH MCHC RDW Plt Count MPV Immature Gran % (Auto) Neut % (Auto) Lymph % (Auto) [place] % (Auto) Eos % (Auto) Baso % (Auto) Lymph # (Auto) [place] # (Auto) Eos # (Auto) Baso # (Auto) Abs Immat Gran (auto) Absolute Neuts (auto) Absolute Nucleated RBC Nucleated RBC % (auto) VBG pH VBG pCO2 VBG pO2 VBG HCO3 VBG O2 Saturation VBG Base Excess Sodium 137 Potassium 4.2 Chloride 107 Carbon Dioxide 11 L Anion Gap 23 H BUN 16 Creatinine 1.27 Estim Creat Clear Calc 70.3 Estimated GFR > 60 POC Glucose 222 H 243 H Random Glucose 253 H Lactic Acid Lactic Acid F/U @ 2Hr Lactic Acid F/U @ 4Hr Calcium 8.9 Phosphorus Magnesium Total Bilirubin Direct Bilirubin AST ALT Alkaline Phosphatase Troponin I High Sens Total Protein Albumin Lipase Beta-Hydroxybutyrate Urine Color Urine Appearance Urine pH Ur Specific [place] Urine Protein Urine Glucose (UA) Urine Ketones Urine Blood Urine Nitrite Ur Leukocyte Esterase Urine RBC Urine WBC Ur Squamous Epith Cells Urine Bacteria Hyaline Casts Urine Opiates Screen Urine Fentanyl Screen Ur Barbiturates Screen Ur Phencyclidine Scrn Ur Amphetamines Screen U Benzodiazepines Scrn Urine Cocaine Screen U Marijuana (THC) Screen COVID-19 (LYNN) COVID-19 Clin Com 05/09/23 05/10/23 05/10/23 23:02 00:05 01:04 WBC RBC Hgb Hct MCV MCH MCHC RDW Plt Count MPV Immature Gran % (Auto) Neut % (Auto) Lymph % (Auto) [place] % (Auto) Eos % (Auto) Baso % (Auto) Lymph # (Auto) [place] # (Auto) Eos # (Auto) Baso # (Auto) Abs Immat Gran (auto) Absolute Neuts (auto) Absolute Nucleated RBC Nucleated RBC % (auto) VBG pH VBG pCO2 VBG pO2 VBG HCO3 VBG O2 Saturation VBG Base Excess Sodium Potassium Chloride Carbon Dioxide Anion Gap BUN Creatinine Estim Creat Clear Calc Estimated GFR POC Glucose 188 H 178 H 161 H Random Glucose Lactic Acid Lactic Acid F/U @ 2Hr Lactic Acid F/U @ 4Hr Calcium Phosphorus Magnesium Total Bilirubin Direct Bilirubin AST ALT Alkaline Phosphatase Troponin I High Sens Total Protein Albumin Lipase Beta-Hydroxybutyrate Urine Color Urine Appearance Urine pH Ur Specific [place] Urine Protein Urine Glucose (UA) Urine Ketones Urine Blood Urine Nitrite Ur Leukocyte Esterase Urine RBC Urine WBC Ur Squamous Epith Cells Urine Bacteria Hyaline Casts Urine Opiates Screen Urine Fentanyl Screen Ur Barbiturates Screen Ur Phencyclidine Scrn Ur Amphetamines Screen U Benzodiazepines Scrn Urine Cocaine Screen U Marijuana (THC) Screen COVID-19 (LYNN) COVID-19 Clin Com 05/10/23 05/10/23 05/10/23 01:05 01:57 02:59 WBC RBC Hgb Hct MCV MCH MCHC RDW Plt Count MPV Immature Gran % (Auto) Neut % (Auto) Lymph % (Auto) [place] % (Auto) Eos % (Auto) Baso % (Auto) Lymph # (Auto) [place] # (Auto) Eos # (Auto) Baso # (Auto) Abs Immat Gran (auto) Absolute Neuts (auto) Absolute Nucleated RBC Nucleated RBC % (auto) VBG pH VBG pCO2 VBG pO2 VBG HCO3 VBG O2 Saturation VBG Base Excess Sodium 142 Potassium 3.7 Chloride 110 H Carbon Dioxide 20 L Anion Gap 16 BUN 15 Creatinine 1.33 Estim Creat Clear Calc 67.1 Estimated GFR > 60 POC Glucose 135 H 136 H Random Glucose 169 H Lactic Acid Lactic Acid F/U @ 2Hr Lactic Acid F/U @ 4Hr Calcium 9.0 Phosphorus Magnesium Total Bilirubin Direct Bilirubin AST ALT Alkaline Phosphatase Troponin I High Sens Total Protein Albumin Lipase Beta-Hydroxybutyrate Urine Color Urine Appearance Urine pH Ur Specific [place] Urine Protein Urine Glucose (UA) Urine Ketones Urine Blood Urine Nitrite Ur Leukocyte Esterase Urine RBC Urine WBC Ur Squamous Epith Cells Urine Bacteria Hyaline Casts Urine Opiates Screen Urine Fentanyl Screen Ur Barbiturates Screen Ur Phencyclidine Scrn Ur Amphetamines Screen U Benzodiazepines Scrn Urine Cocaine Screen U Marijuana (THC) Screen COVID-19 (LYNN) COVID-19 Clin Com 05/10/23 05/10/23 05/10/23 03:59 04:38 04:43 WBC 13.4 H RBC 4.52 L Hgb 14.5 Hct 41.3 L D MCV 91.4 D MCH 32.1 MCHC 35.1 RDW 11.3 Plt Count 235 D MPV 10.0 Immature Gran % (Auto) 0.3 Neut % (Auto) 84.2 H Lymph % (Auto) 10.2 L [place] % (Auto) 5.1 Eos % (Auto) 0.1 Baso % (Auto) 0.1 Lymph # (Auto) 1.4 [place] # (Auto) 0.7 Eos # (Auto) 0.0 Baso # (Auto) 0.0 Abs Immat Gran (auto) 0.04 H Absolute Neuts (auto) 11.2 H Absolute Nucleated RBC 0.000 Nucleated RBC % (auto) 0.0 VBG pH 7.42 VBG pCO2 26 VBG pO2 116 VBG HCO3 17 L VBG O2 Saturation 99.0 VBG Base Excess -4.8 Sodium 140 Potassium 3.8 Chloride 108 Carbon Dioxide 17 L Anion Gap 19 BUN 14 Creatinine 1.21 Estim Creat Clear Calc 73.8 Estimated GFR > 60 POC Glucose 177 H Random Glucose 216 H Lactic Acid Lactic Acid F/U @ 2Hr Lactic Acid F/U @ 4Hr Calcium 8.7 Phosphorus 2.3 L Magnesium 2.1 Total Bilirubin Direct Bilirubin AST ALT Alkaline Phosphatase Troponin I High Sens Total Protein Albumin 3.6 Lipase Beta-Hydroxybutyrate Urine Color Urine Appearance Urine pH Ur Specific [place] Urine Protein Urine Glucose (UA) Urine Ketones Urine Blood Urine Nitrite Ur Leukocyte Esterase Urine RBC Urine WBC Ur Squamous Epith Cells Urine Bacteria Hyaline Casts Urine Opiates Screen Urine Fentanyl Screen Ur Barbiturates Screen Ur Phencyclidine Scrn Ur Amphetamines Screen U Benzodiazepines Scrn Urine Cocaine Screen U Marijuana (THC) Screen COVID-19 (LYNN) COVID-19 Clin Com 05/10/23 05/10/23 05/10/23 05:00 05:56 07:02 WBC RBC Hgb Hct MCV MCH MCHC RDW Plt Count MPV Immature Gran % (Auto) Neut % (Auto) Lymph % (Auto) [place] % (Auto) Eos % (Auto) Baso % (Auto) Lymph # (Auto) [place] # (Auto) Eos # (Auto) Baso # (Auto) Abs Immat Gran (auto) Absolute Neuts (auto) Absolute Nucleated RBC Nucleated RBC % (auto) VBG pH VBG pCO2 VBG pO2 VBG HCO3 VBG O2 Saturation VBG Base Excess Sodium Potassium Chloride Carbon Dioxide Anion Gap BUN Creatinine Estim Creat Clear Calc Estimated GFR POC Glucose 209 H 214 H 204 H Random Glucose Lactic Acid Lactic Acid F/U @ 2Hr Lactic Acid F/U @ 4Hr Calcium Phosphorus Magnesium Total Bilirubin Direct Bilirubin AST ALT Alkaline Phosphatase Troponin I High Sens Total Protein Albumin Lipase Beta-Hydroxybutyrate Urine Color Urine Appearance Urine pH Ur Specific [place] Urine Protein Urine Glucose (UA) Urine Ketones Urine Blood Urine Nitrite Ur Leukocyte Esterase Urine RBC Urine WBC Ur Squamous Epith Cells Urine Bacteria Hyaline Casts Urine Opiates Screen Urine Fentanyl Screen Ur Barbiturates Screen Ur Phencyclidine Scrn Ur Amphetamines Screen U Benzodiazepines Scrn Urine Cocaine Screen U Marijuana (THC) Screen COVID-19 (LYNN) COVID-19 Clin Com 05/10/23 05/10/23 08:04 09:01 WBC RBC Hgb Hct MCV MCH MCHC RDW Plt Count MPV Immature Gran % (Auto) Neut % (Auto) Lymph % (Auto) [place] % (Auto) Eos % (Auto) Baso % (Auto) Lymph # (Auto) [place] # (Auto) Eos # (Auto) Baso # (Auto) Abs Immat Gran (auto) Absolute Neuts (auto) Absolute Nucleated RBC Nucleated RBC % (auto) VBG pH VBG pCO2 VBG pO2 VBG HCO3 VBG O2 Saturation VBG Base Excess Sodium Potassium Chloride Carbon Dioxide Anion Gap BUN Creatinine Estim Creat Clear Calc Estimated GFR POC Glucose 184 H 159 H Random Glucose Lactic Acid Lactic Acid F/U @ 2Hr Lactic Acid F/U @ 4Hr Calcium Phosphorus Magnesium Total Bilirubin Direct Bilirubin AST ALT Alkaline Phosphatase Troponin I High Sens Total Protein Albumin Lipase Beta-Hydroxybutyrate Urine Color Urine Appearance Urine pH Ur Specific [place] Urine Protein Urine Glucose (UA) Urine Ketones Urine Blood Urine Nitrite Ur Leukocyte Esterase Urine RBC Urine WBC Ur Squamous Epith Cells Urine Bacteria Hyaline Casts Urine Opiates Screen Urine Fentanyl Screen Ur Barbiturates Screen Ur Phencyclidine Scrn Ur Amphetamines Screen U Benzodiazepines Scrn Urine Cocaine Screen U Marijuana (THC) Screen COVID-19 (LYNN) COVID-19 Clin Com Progress Note: A&P Assessment and plan (1) DKA (diabetic ketoacidosis): Status: Acute Plan Assessment: 32-year-old gentleman with underlying diabetes mellitus of insulin for 2 weeks secondary to insurance recent admitted with diabetic ketoacidosis. Plan: Neuro: No acute issues. Cardiac: No acute issues. Pulmonary: No acute issues. Renal: No acute issues. Endo: Diabetic ketoacidosis, continue to titrate off insulin drip as tolerated. GI: No acute issues. ID: No acute issues Heme/Onc: No acute issues. Psych: No acute issues. Miscellaneous: No acute issues. Prophylaxis: Heparin Diet: Nothing by mouth Quality Stroke Does the patient have a stroke diagnosis?: No VTE Prior VTE?: No VTE Risk Level:: Medical - moderate - high VTE Device Contraindication: Treatment Not Indicated VTE Drug Contraindication: N/A - Med Ordered
[2023-05-10] MEDS: Insulin Regular/NS 100 UNIT/100 ML PLAST..BAG IVCONT (09:35)
[2023-05-10 10:06] LABS: Glucose, Whole Blood 149 mg/dL (60-115)
--- NOTE | 2023-05-10 10:16 | MHC.CM.PN ---
CM MET WITH PT AT BEDSIDE IN ICU. PT LIVES ALONE AND IS RECENTLY UNEMPLOYED. PT REQUESTS TO SPEAK TO SOMEONE FROM FINANCIAL SERVICES. REQUEST SENT TO FINANCIAL COUNSELOR. PT IS INDEPENDENT AT BASELINE. DUE TO BEING UNEMPLOYED , IS NOT ABLE TO GET DIABETIC SUPPLIES/MEDS ANY LONGER. + THRIVE ASSESSMENT. RESOURCE GUIDE PROVIDED. NO HCP, WILL NEED TO THINK ABOUT WHO HE WOULD NAME. CM WILL RE-APPROACH. NO PCP, [facility] [place] [facility] PROVIDED. DP: HOME, NO SERVICES ANTICIPATED. PT HAS OWN [facility] HOME. CM WILL CONTINUE TO FOLLOW FOR ANY CHANGE IN DC NEEDS/PLAN.
[2023-05-10 11:07] LABS: Glucose, Whole Blood 168 mg/dL (60-115)
[2023-05-10 12:09] LABS: Glucose, Whole Blood 221 mg/dL (60-115)
[2023-05-10 13:10] LABS: Glucose, Whole Blood 227 mg/dL (60-115)
[2023-05-10 13:13] LABS: Anion Gap 15 (12-20); Blood Urea Nitrogen 14 mg/dL (9-16); Calcium 8.6 mg/dL (8.4-10.2); Carbon Dioxide 21 mmol/L (22-29); Chloride 107 mmol/L (96-108); Creatinine Clr Calc Pharmacy 103.1; Estimated Glomerular Filt Rate > 60; Glucose Random 238 mg/dL (60-115); Potassium 3.4 mmol/L (3.3-5.1); Sodium 140 mmol/L (135-145)
[2023-05-10] MEDS: Insulin Glargine,Hum.rec.anlog 100 UNIT/ML 10 ML VIAL 25 UNIT SUBCUT (14:01)
[2023-05-10] MEDS: Potassium Chloride Packet 20 MEQ PACKET 40 MEQ PO (14:01)
[2023-05-10 16:08] LABS: Glucose, Whole Blood 351 mg/dL (60-115)
[2023-05-10] MEDS: Insulin Lispro 100 UNIT/ML 3 ML VIAL SUBCUT ×3 (16:39→23:33)
[2023-05-10 16:43] LABS: Anion Gap 15 (12-20); Blood Urea Nitrogen 13 mg/dL (9-16); Calcium 8.5 mg/dL (8.4-10.2); Carbon Dioxide 22 mmol/L (22-29); Chloride 102 mmol/L (96-108); Creatinine Clr Calc Pharmacy 79.8; Estimated Glomerular Filt Rate > 60; Glucose Random 401 mg/dL (60-115); Potassium 3.8 mmol/L (3.3-5.1); Sodium 135 mmol/L (135-145)
[2023-05-10] MEDS: Insulin Glargine,Hum.rec.anlog 100 UNIT/ML 10 ML VIAL 10 UNIT SUBCUT (16:54)
[2023-05-10 17:14] LABS: Glucose, Whole Blood 358 mg/dL (60-115)
[2023-05-10 18:56] LABS: Glucose, Whole Blood 353 mg/dL (60-115)
[2023-05-10 20:44] LABS: Glucose, Whole Blood 440 mg/dL (60-115)
[2023-05-10 22:59] LABS: Glucose, Whole Blood 308 mg/dL (60-115)
[2023-05-10] MEDS: Melatonin 3 MG TABLET 6 MG PO (23:34)
[2023-05-11 04:00] VITALS: BP 151/89; PULSE 67; RESP 18; TEMP 36.8; O2SAT 99
[2023-05-11 06:22] LABS: MANUAL DIFF FLAG NO
[2023-05-11 06:27] LABS: Venous Blood Gas Refer to POC result
[2023-05-11 06:28] LABS: VBG Base Excess 10.7 mmol/L; VBG HCO3 36 mmol/L (22-26); VBG pCO2 50 mmHg; VBG pH 7.46 (7.32-7.43); VBG pO2 56 mmHg
[2023-05-11 06:57] LABS: Albumin Level 3.5 g/dL (3.5-5.0); Anion Gap 12 (12-20); Blood Urea Nitrogen 11 mg/dL (9-16); Calcium 9.1 mg/dL (8.4-10.2); Carbon Dioxide 32 mmol/L (22-29); Chloride 98 mmol/L (96-108); Creatinine Clr Calc Pharmacy 110.6; Estimated Glomerular Filt Rate > 60; Glucose Random 283 mg/dL (60-115); Phosphorus 3.1 mg/dL (2.7-4.5); Potassium 3.2 mmol/L (3.3-5.1); Sodium 139 mmol/L (135-145)
[2023-05-11 07:02] LABS: Basophils Percent Auto 0.1 % (0-2); Eosinophils Percent Auto 0.5 % (0-4); Hematocrit 39.6 % (42.0-52.0); Imm Gran Abs Auto 0.02 X10*3/uL (0.00-0.03); Imm Gran Pct Auto 0.3 % (0.0-0.4); Lymphocytes Absolute Auto 1.7 X10*3/uL (1.2-4.9); Lymphocytes Percent Auto 22.3 % (20-40); Mean Corpuscular HGB Conc 35.4 g/dl (31.0-36.0); Mean Corpuscular Hemoglobin 32.1 pg (27.0-33.0); Mean Corpuscular Volume 90.8 fL (80.0-98.0); Monocytes Absolute Auto 0.5 X10*3/uL (0.1-1.2); Monocytes Percent Auto 5.8 % (2-11); Neutrophils Absolute Auto 5.5 x10*3/uL (2.0-8.3); Platelet Count 212 X10*3/uL (160-400); Red Blood Count 4.36 X10*6/uL (4.60-5.80); Red Cell Distribution Width 11.3 % (11.0-16.0); White Blood Count 7.7 X10*3/uL (4.8-10.8)
[2023-05-11 07:42] VITALS: BP 133/92; PULSE 71; RESP 20; TEMP 36.1; O2SAT 98
[2023-05-11 07:54] LABS: Glucose, Whole Blood 281 mg/dL (60-115)
[2023-05-11] MEDS: Insulin Glargine,Hum.rec.anlog 100 UNIT/ML 10 ML VIAL 35 UNIT SUBCUT (09:38)
[2023-05-11] MEDS: Potassium Chloride ER 20 MEQ TAB.ER.PRT 40 MEQ PO (09:38)
[2023-05-11] MEDS: Insulin Lispro 100 UNIT/ML 3 ML VIAL SUBCUT ×6 (09:38→20:44)
--- NOTE | 2023-05-11 10:20 | P.PNIM_ITS ---
Subjective Subjective Date of Service: 05/11/23 Interval History: hungry Physical Exam 2 Vital Signs: Vital Signs: Last Vital Signs Temp 96.9 F 05/11/23 07:42 Pulse 71 05/11/23 07:42 Resp 20 05/11/23 07:42 BP 133/92 H 05/11/23 07:42 Pulse Ox 98 05/11/23 07:42 O2 Del Method Room Air 05/11/23 07:42 BMI result Body Mass Index 19.0 General: AO X 3, no acute distress Resp: CTA bilateral, no accessory muscles used CVS: S1,S2,RRR GI: soft, non tender, non distended Neuro: motor grossly intact, alert Psych: appropriate affect, appropriate insight Objective Data Active Medications Dextrose (Dextrose 50 % 25 Gm/50 Ml Syringe) 25 gm IVPUSH Q30M PRN PRN Reason: BG < 70 Heparin Sodium (Porcine) (Heparin Sodium,Porcine 5,000 Unit/Ml Vial) 5,000 unit SUBCUT Q8H [facility] Last Admin: 05/11/23 02:46 Dose: Not Given Documented By: LELAND Non-Admin Reason: Patient Refused Insulin Glargine (Insulin Glargine,Hum.Rec.Anlog 100 Unit/Ml 10 Ml Vial) 35 unit SUBCUT DAILY [facility] Last Admin: 05/11/23 09:38 Dose: 35 unit Documented By: ANISA Insulin Human Lispro (Insulin Lispro 100 Unit/Ml 3 Ml Vial) 0 unit SUBCUT QIDACHS [facility]; Protocol Last Admin: 05/11/23 09:38 Dose: 6 unit Documented By: ANISA Insulin Human Lispro (Insulin Lispro 100 Unit/Ml 3 Ml Vial) 5 unit SUBCUT QIDACHS [facility] Melatonin (Melatonin 3 Mg Tablet) 6 mg PO BEDTIME PRN PRN Reason: Sleep Last Admin: 05/10/23 23:34 Dose: 6 mg Documented By: LELAND Ondansetron HCl (Ondansetron Hcl 4 Mg/2 Ml Vial) 4 mg IVPUSH Q6H PRN PRN Reason: Nausea and Vomiting Last Admin: 05/10/23 00:21 Dose: 4 mg Documented By: SYEDA Comments: ok to give now per [facility] 05/11/23 06:14 05/11/23 06:14 Labs: Laboratory Results - last 24 hr 05/10/23 05/10/23 05/10/23 11:04 12:05 12:26 MCV MCH MCHC RDW Plt Count MPV Immature Gran % (Auto) Neut % (Auto) Lymph % (Auto) [place] % (Auto) Eos % (Auto) Baso % (Auto) Lymph # (Auto) [place] # (Auto) Eos # (Auto) Baso # (Auto) Abs Immat Gran (auto) Absolute Neuts (auto) Absolute Nucleated RBC Nucleated RBC % (auto) VBG pH VBG pCO2 VBG pO2 VBG HCO3 VBG O2 Saturation VBG Base Excess Anion Gap 15 Estim Creat Clear Calc 103.1 Estimated GFR > 60 POC Glucose 168 H 221 H Random Glucose 238 H Calcium 8.6 Phosphorus Magnesium Albumin 05/10/23 05/10/23 05/10/23 13:07 16:04 16:07 MCV MCH MCHC RDW Plt Count MPV Immature Gran % (Auto) Neut % (Auto) Lymph % (Auto) [place] % (Auto) Eos % (Auto) Baso % (Auto) Lymph # (Auto) [place] # (Auto) Eos # (Auto) Baso # (Auto) Abs Immat Gran (auto) Absolute Neuts (auto) Absolute Nucleated RBC Nucleated RBC % (auto) VBG pH VBG pCO2 VBG pO2 VBG HCO3 VBG O2 Saturation VBG Base Excess Anion Gap 15 Estim Creat Clear Calc 79.8 Estimated GFR > 60 POC Glucose 227 H 351 H* Random Glucose 401 H* Calcium 8.5 Phosphorus Magnesium Albumin 05/10/23 05/10/23 05/10/23 17:11 18:24 20:19 MCV MCH MCHC RDW Plt Count MPV Immature Gran % (Auto) Neut % (Auto) Lymph % (Auto) [place] % (Auto) Eos % (Auto) Baso % (Auto) Lymph # (Auto) [place] # (Auto) Eos # (Auto) Baso # (Auto) Abs Immat Gran (auto) Absolute Neuts (auto) Absolute Nucleated RBC Nucleated RBC % (auto) VBG pH VBG pCO2 VBG pO2 VBG HCO3 VBG O2 Saturation VBG Base Excess Anion Gap Estim Creat Clear Calc Estimated GFR POC Glucose 358 H* 353 H* 440 H* Random Glucose Calcium Phosphorus Magnesium Albumin 05/10/23 05/11/23 05/11/23 22:55 06:14 06:22 MCV 90.8 MCH 32.1 MCHC 35.4 RDW 11.3 Plt Count 212 MPV 10.0 Immature Gran % (Auto) 0.3 Neut % (Auto) 71.0 Lymph % (Auto) 22.3 [place] % (Auto) 5.8 Eos % (Auto) 0.5 Baso % (Auto) 0.1 Lymph # (Auto) 1.7 [place] # (Auto) 0.5 Eos # (Auto) 0.0 Baso # (Auto) 0.0 Abs Immat Gran (auto) 0.02 Absolute Neuts (auto) 5.5 Absolute Nucleated RBC 0.000 Nucleated RBC % (auto) 0.0 VBG pH 7.46 H VBG pCO2 50 VBG pO2 56 VBG HCO3 36 H VBG O2 Saturation 89.0 VBG Base Excess 10.7 Anion Gap 12 Estim Creat Clear Calc 110.6 Estimated GFR > 60 POC Glucose 308 H Random Glucose 283 H Calcium 9.1 D Phosphorus 3.1 Magnesium 2.0 Albumin 3.5 05/11/23 07:47 MCV MCH MCHC RDW Plt Count MPV Immature Gran % (Auto) Neut % (Auto) Lymph % (Auto) [place] % (Auto) Eos % (Auto) Baso % (Auto) Lymph # (Auto) [place] # (Auto) Eos # (Auto) Baso # (Auto) Abs Immat Gran (auto) Absolute Neuts (auto) Absolute Nucleated RBC Nucleated RBC % (auto) VBG pH VBG pCO2 VBG pO2 VBG HCO3 VBG O2 Saturation VBG Base Excess Anion Gap Estim Creat Clear Calc Estimated GFR POC Glucose 281 H Random Glucose Calcium Phosphorus Magnesium Albumin Assessment and Plan (1) DKA (diabetic ketoacidosis): Status: Acute Plan 32M PMH DM admitted to icu for DKA now AG closed, downgraded to medical floor 05/10/23 dm with dka due to insurance issues did not have insulin dka resolved continue basal bolus insulin acute hypokalemia replace dvt prophylaxis - hep sq full code reason for continued hospitalization:needs arrangement for outpatient insulin Quality Stroke Does the patient have a stroke diagnosis?: No VTE Prior VTE?: No VTE Risk Level:: Medical - moderate - high VTE Device Contraindication: Treatment Not Indicated VTE Drug Contraindication: N/A - Med Ordered
[2023-05-11 10:57] LABS: Glucose, Whole Blood 309 mg/dL (60-115)
[2023-05-11 11:02] VITALS: BP 114/66; PULSE 74; RESP 20; TEMP 36.7; O2SAT 99
--- NOTE | 2023-05-11 13:50 | MHC.CM.PN ---
Pt currently does not have medical insurance, he has met with financial counselor here, and they will follow up to get him coverage for his DC meds. CM will continue to follow and assist with DC plan.
[2023-05-11 15:19] VITALS: BP 125/72; PULSE 77; RESP 20; TEMP 36.4; O2SAT 98
[2023-05-11 16:55] LABS: Glucose, Whole Blood 176 mg/dL (60-115)
[2023-05-11 19:14] VITALS: BP 133/85; PULSE 71; RESP 17; TEMP 36.6; O2SAT 100
[2023-05-11 20:38] LABS: Glucose, Whole Blood 138 mg/dL (60-115)
[2023-05-11 23:25] VITALS: BP 118/81; PULSE 71; RESP 18; TEMP 37.1; O2SAT 99
[2023-05-11 23:40] LABS: Glucose, Whole Blood 184 mg/dL (60-115)
[2023-05-12 04:00] VITALS: BP 125/79; PULSE 69; RESP 18; TEMP 36.6; O2SAT 99
[2023-05-12 07:24] LABS: Glucose, Whole Blood 307 mg/dL (60-115)
[2023-05-12 07:31] VITALS: BP 136/83; PULSE 65; RESP 20; TEMP 36.3; O2SAT 99
[2023-05-12] MEDS: Insulin Glargine,Hum.rec.anlog 100 UNIT/ML 10 ML VIAL 35 UNIT SUBCUT (08:05)
[2023-05-12] MEDS: Insulin Lispro 100 UNIT/ML 3 ML VIAL SUBCUT ×6 (08:06→16:41)
--- NOTE | 2023-05-12 10:21 | P.CDIM_ITS ---
PROVIDER RESPONSE TEXT: To clarify, the appropriate diagnosis supported by the clinical indicators: Other (explain): not significant QUERY TEXT: PHYSICIAN'S DOCUMENTATION REQUEST Date of Query: 05/12/2023 10:06 AM EST Patient Name: Aron Perez Admit Date: 05/09/2023 Dear Trenton Araiza, A review of the medical record indicates additional documentation may be needed. Please review below and update the documentation accordingly. Clinical Indicators: Height: ( ) 5'11 Weight: ( ) 61.8 kg BMI: ( ) 19.0 Other Clinical Notes Supporting Significance of the BMI: Per Nutritional Risk Assessment 05/10/23: on therapeutic diet If possible, please provide an associated diagnosis related to the abnormal BMI, such as: Underweight Weight loss Cachexia Anorexia BMI is not significant Other (explain) Clinically unable to determine (explain) Thank you, Terri Salgado RN Use of terms such as suspected, likely, concern for, or probable (associated with a specific diagnosi s that is being evaluated, monitored, or treated as if it exists) are acceptable and can be coded in the inpatient se tting, when documented at the time of discharge. Please use your independent medical judgment in providing your response. THIS QUERY IS PART OF THE PERMANENT MEDICAL RECORD
[2023-05-12] MEDS: Acetaminophen 325 MG TABLET 650 MG PO (10:26)
--- NOTE | 2023-05-12 11:00 | P.PNIM_ITS ---
Subjective Subjective Date of Service: 05/12/23 Interval History: no complaints Physical Exam 2 Vital Signs: Vital Signs: Last Vital Signs Temp 97.4 F 05/12/23 07:31 Pulse 65 05/12/23 07:31 Resp 20 05/12/23 07:31 BP 136/83 05/12/23 07:31 Pulse Ox 99 05/12/23 07:31 O2 Del Method Room Air 05/12/23 07:31 BMI result Body Mass Index 19.0 General: AO X 3, no acute distress Resp: CTA bilateral, no accessory muscles used CVS: S1,S2,RRR GI: soft, non tender, non distended Neuro: motor grossly intact, alert Psych: appropriate affect, appropriate insight Objective Data Active Medications Acetaminophen (Acetaminophen 325 Mg Tablet) 650 mg PO Q6H PRN PRN Reason: mild pain Last Admin: 05/12/23 10:26 Dose: 650 mg Documented By: UMA Dextrose (Dextrose 50 % 25 Gm/50 Ml Syringe) 25 gm IVPUSH Q30M PRN PRN Reason: BG < 70 Heparin Sodium (Porcine) (Heparin Sodium,Porcine 5,000 Unit/Ml Vial) 5,000 unit SUBCUT Q8H [facility] Last Admin: 05/12/23 06:08 Dose: Not Given Documented By: SHARMIN Non-Admin Reason: Patient Refused Insulin Glargine (Insulin Glargine,Hum.Rec.Anlog 100 Unit/Ml 10 Ml Vial) 35 unit SUBCUT DAILY [facility] Last Admin: 05/12/23 08:05 Dose: 35 unit Documented By: UMA Insulin Human Lispro (Insulin Lispro 100 Unit/Ml 3 Ml Vial) 0 unit SUBCUT QIDACHS [facility]; Protocol Last Admin: 05/12/23 08:06 Dose: 8 unit Documented By: UMA Insulin Human Lispro (Insulin Lispro 100 Unit/Ml 3 Ml Vial) 5 unit SUBCUT QIDACHS [facility] Last Admin: 05/12/23 08:06 Dose: 5 unit Documented By: UMA Melatonin (Melatonin 3 Mg Tablet) 6 mg PO BEDTIME PRN PRN Reason: Sleep Last Admin: 05/10/23 23:34 Dose: 6 mg Documented By: LELAND Ondansetron HCl (Ondansetron Hcl 4 Mg/2 Ml Vial) 4 mg IVPUSH Q6H PRN PRN Reason: Nausea and Vomiting Last Admin: 05/10/23 00:21 Dose: 4 mg Documented By: SYEDA Comments: ok to give now per [facility]IC[facility] 05/11/23 06:14 05/11/23 06:14 Labs: Laboratory Results - last 24 hr 05/11/23 05/11/23 05/11/23 16:19 20:11 23:27 POC Glucose 176 H 138 H 184 H 05/12/23 07:15 POC Glucose 307 H Assessment and Plan (1) DKA (diabetic ketoacidosis): Status: Acute Plan 32M PMH DM admitted to icu for DKA now AG closed, downgraded to medical floor 05/10/23 dm with dka due to insurance issues did not have insulin dka resolved continue basal bolus insulin acute hypokalemia replace dvt prophylaxis - hep sq full code reason for continued hospitalization:needs arrangement for outpatient insulin Quality Stroke Does the patient have a stroke diagnosis?: No VTE Prior VTE?: No VTE Risk Level:: Medical - moderate - high VTE Device Contraindication: Treatment Not Indicated VTE Drug Contraindication: N/A - Med Ordered
[2023-05-12 11:52] LABS: Glucose, Whole Blood 235 mg/dL (60-115)
[2023-05-12 12:00] VITALS: BP 136/85; PULSE 68; RESP 18; TEMP 36.4; O2SAT 99
--- NOTE | 2023-05-12 13:46 | MHC.CM.PN ---
Pt has completed [facility] application with this assistance of [facility] counselor. He is awaiting processing of application to obtain an insurance # and therefore be able to obtain his medications for Diabetes.
--- NOTE | 2023-05-12 15:23 | PM.DS ---
DS: Providers Provider Date of Service: 05/12/23 Date of admission: 05/09/23 10:17 Primary care physician: None Physician DS: Diagnosis Discharge Diagnosis (1) DKA (diabetic ketoacidosis): Status: Acute DS: Summary Hospital Course Hospital Course: from initial hpi: 32-year-old gentleman with underlying diabetes mellitus, off insulin for 2 weeks secondary to insurance issues presented to emergency room complaining of nausea, vomiting, polyuria, and polydipsia. On ER evaluation patient with profound diabetic ketoacidosis, started on IV fluids and insulin drip and admitted to the intensive care unit. hospital course: patient was admitted for dm with dka due to not having insurance to get insulin. was treated with iv insulin, AG closed. transitioned to basal bolus insulin, masshelath obtained and insulin scripts sent. he had acute hypokalemia which was repleted. Time Attestation Discharge coordination time: Greater than 30 minutes Quality: Safe Use of Opioids Does Pt have an Active Cancer Diagnosis on the Problem List?: No Quality: Stroke Does the patient have a stroke diagnosis?: No Physical Exam Vital Signs: Vital Signs: Last Vital Signs Temp 97.5 F 05/12/23 12:00 Pulse 68 05/12/23 12:00 Resp 18 05/12/23 12:00 BP 136/85 05/12/23 12:00 Pulse Ox 99 05/12/23 12:00 O2 Del Method Room Air 05/12/23 12:00 BMI result Body Mass Index 19.0 General: AO X 3, no acute distress Resp: CTA bilateral, no accessory muscles used CVS: S1,S2,RRR GI: soft, non tender, non distended Neuro: motor grossly intact, alert Psych: appropriate affect, appropriate insight DS: Data Data Completed and Pending Labs on day of discharge: Laboratory Results - last 24 hr 05/11/23 05/11/23 05/11/23 16:19 20:11 23:27 POC Glucose 176 H 138 H 184 H 05/12/23 05/12/23 07:15 11:47 POC Glucose 307 H 235 H Discharge Plan Discharge Anticipated Discharge Date/Time: 05/12/23 15:18 Patient Disposition: Home, Self-Care Discharge Diagnosis: dka Referrals: Physician,None [Primary Care Provider] - 1 Week Discharge Medications: New insulin glargine [Lantus U-100 Insulin] 100 unit/mL Solution 35 unit subcut DAILY 30 Days Qty: 10.5 0RF Continued insulin lispro [Humalog KwikPen Insulin] 100 unit/mL insulin pen 1 sliding scale dose subcut USEASDIRECTD Qty: 30 2RF Discontinued amoxicillin-pot clavulanate 875-125 mg tablet 1 tab PO BID Qty: 20 0RF Rx Instructions: until 05/11/23 ibuprofen 600 mg tablet 600 mg PO Q6H PRN (Reason: fever or pain) Qty: 30 0RF insulin glargine [Lantus Solostar U-100 Insulin] 100 unit/mL (3 mL) insulin pen 30 unit subcut BEDTIME Discharge Orders: Discharge Order (Routine); Ordered 05/12/23 Ordered By: Trenton Araiza Diet: Diabetic diet Activity on Discharge: As tolerated Stand Alone Forms: Patient Portal Discharge page Care Plan Goals: prevent dka Health Concerns: dka Plan of Treatment: restart insulin, follow up with pcp Assessment: see above
--- NOTE | 2023-05-12 15:49 | MHC.CM.PN ---
pt has been medically cleared for DC. He now has a [employer] number and will fill his prescriptions at [address] in [place]. His [place]. com. cn # is: [phone].
[2023-05-12 16:05] VITALS: BP 125/78; PULSE 70; RESP 16; TEMP 36.3; O2SAT 100
[2023-05-12 16:15] LABS: Glucose, Whole Blood 296 mg/dL (60-115)
== END 2023-05-12 17:59 | disposition home or self-care (01) | DRG 420 ==
LOC: HO.ED 10:24 → HO.EDOVER 10:25 → HO.ICU 11:35 → HO.IMC 05-10 16:54
PROVIDERS: Nurse Practitioner Family; Physician Assistant; Admitting Provider Internal Medicine Pulmonary Disease; Emergency Provider Emergency Medicine Emergency Medical Services; Visit Provider Internal Medicine
DX: E11.10 Type 2 diabetes mellitus with ketoacidosis without coma (principal); E87.6 Hypokalemia; Z20.822 Contact with and (suspected) exposure to COVID-19; Z79.4 Long term (current) use of insulin; T38.3X6A Underdosing of insulin and oral hypoglycemic [antidiabetic] drugs, initial encounter; Z91.120 Patient's intentional underdosing of medication regimen due to financial hardship
CPT/HCPCS: 36415; 80048; 80076; 80307; 81001; 82010; 82040; 82803; 82947; 83605; 83690; 83735; 84100; 84484; 85025; 87635; 93005; 99285; J0613; J1644; J2405; J7120

== ENCOUNTER → 2023-05-09 09:02 | Outpatient (BNV) | payer MEDICAID, SELFPAY | PROVIDERS: Admitting Provider Internal Medicine Pulmonary Disease; Emergency Provider Emergency Medicine Emergency Medical Services; Visit Provider Internal Medicine | DX: I49.1 Atrial premature depolarization (principal); R94.31 Abnormal electrocardiogram [ECG] [EKG] | CPT/HCPCS: 93010 ==

== ENCOUNTER → 2023-05-09 10:17 | Outpatient (BNV) | payer MEDICAID, SELFPAY | PROVIDERS: Admitting Provider Internal Medicine Pulmonary Disease; Emergency Provider Emergency Medicine Emergency Medical Services; Visit Provider Internal Medicine Pulmonary Disease | DX: E11.10 Type 2 diabetes mellitus with ketoacidosis without coma (principal) | CPT/HCPCS: 99223; 99232 ==

== ENCOUNTER → 2023-05-09 10:17 | Outpatient (BNV) | payer MEDICAID, SELFPAY | PROVIDERS: Admitting Provider Internal Medicine Pulmonary Disease; Emergency Provider Emergency Medicine Emergency Medical Services; Visit Provider Internal Medicine | DX: E11.10 Type 2 diabetes mellitus with ketoacidosis without coma (principal) | CPT/HCPCS: 99232; 99239 ==

== ENCOUNTER 2023-09-02 22:00 | Emergency (ER) | payer OTHER, SELFPAY ==
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
--- NOTE | ~2023-09-02 | CT_ITS ---
EXAMINATION: CT HEAD WITHOUT CONTRAST CLINICAL INFORMATION: Fall, head injury COMPARISON: 07/10/2020 TECHNIQUE: Contiguous axial imaging was performed from the skull base to vertex without intravenous administration of contrast. This CT examination was performed using dose optimization techniques as appropriate, variously including the following: *Automated exposure control *Adjustment of mA and/or kV according to patient size (this includes techniques or standardized protocols for targeted exams where dose is matched to indication/reason for exam; i.e. extremities or head) *Use of iterative reconstruction technique DLP: 608 mGy-cm FINDINGS: There is no evidence of acute intracranial hemorrhage or territorial infarction. No abnormal mass-effect or midline shift is seen. Beatty to white matter differentiation is well preserved. No extra-axial fluid collections are identified. The ventricles are normal in size. There is no abnormal attenuation within the brain parenchyma. The osseous structures and soft tissues are normal. The mastoid air cells are well-aerated. Mucosal thickening of the bilateral maxillary sinuses. CT/CT head/brain wo IV con IMPRESSION: No acute intracranial pathology.
[2023-09-02 22:03] VITALS: BP 115/69; PULSE 79; RESP 18; TEMP 37; O2SAT 95; BMI 19.6
--- NOTE | 2023-09-02 22:10 | PC.NURSE ---
Patient came walking in. was collared in triage and put on stretcher. moved to ed 5.
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
[2023-09-02 22:27] VITALS: BP 117/76; PULSE 83; RESP 18; TEMP 36.8; O2SAT 97
[2023-09-02] MEDS: ondansetron HCL 4 MG/2 ML VIAL IVPUSH (23:01)
[2023-09-02] MEDS: Morphine Sulfate 4 MG/ML CARTRIDGE IVPUSH (23:01)
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
[2023-09-02 23:30] VITALS: BP 117/76; PULSE 83; RESP 18; TEMP 36.8; O2SAT 97
== END 2023-09-02 23:31 | disposition short-term general hospital (02) ==
PROVIDERS: Emergency Provider Emergency Medicine Emergency Medical Services
DX: S12.091A Other nondisplaced fracture of first cervical vertebra, initial encounter for closed fracture (principal); S12.190A Other displaced fracture of second cervical vertebra, initial encounter for closed fracture; E11.9 Type 2 diabetes mellitus without complications; Z79.4 Long term (current) use of insulin; X58.XXXA Exposure to other specified factors, initial encounter; Y93.I9 Activity, other involving external motion; Y92.838 Other recreation area as the place of occurrence of the external cause; Y99.9 Unspecified external cause status
CPT/HCPCS: 70450; 72125; 96374; 96375; 99284; 99285; J2270; J2405

== ENCOUNTER 2023-09-24 22:59 | Emergency (ER) | payer OTHER, SELFPAY ==
--- NOTE | 2023-09-24 | ECG_ITS ---
Test Reason : SOB Blood Pressure : / mmHG Vent. Rate : 074 BPM Atrial Rate : 074 BPM P-R Int : 130 ms QRS Dur : 096 ms QT Int : 386 ms P-R-T Axes : 000 104 060 degrees QTc Int : 428 ms Normal sinus rhythm Rightward axis Possible Anterior infarct , age undetermined Abnormal ECG When compared with ECG of 09-MAY-2023 09:24, Aberrant conduction is no longer Present Non-specific change in ST segment in Inferior leads T wave amplitude has decreased in Anterior leads Referred By: Generic ED Physician Electronically Signed By:EMILY HOPKINS MD
--- NOTE | ~2023-09-24 | XR_ITS ---
EXAMINATION: XR CHEST CLINICAL INFORMATION: Shortness of breath COMPARISON: None available. TECHNIQUE: 2 views of the chest were obtained. FINDINGS: No significant abnormality is noted involving the heart, lungs, mediastinum, bony thorax or soft tissues. Small focus of atelectasis in the left midlung. XR/XR chest 2V IMPRESSION: Unremarkable examination.
[2023-09-24 23:09] VITALS: BP 125/89; PULSE 89; RESP 18; TEMP 36.8; O2SAT 99; BMI 20.2
[2023-09-24 23:37] LABS: MANUAL DIFF FLAG NO
[2023-09-24 23:38] LABS: Basophils Percent Auto 0.7 % (0-2); Eosinophils Absolute Auto 0.2 X10*3/uL (0.0-0.4); Eosinophils Percent Auto 4.4 % (0-4); Hematocrit 41.3 % (42.0-52.0); Hemoglobin 14.1 g/dl (14.0-18.0); Imm Gran Abs Auto 0.01 X10*3/uL (0.00-0.03); Imm Gran Pct Auto 0.2 % (0.0-0.4); Lymphocytes Absolute Auto 1.6 X10*3/uL (1.2-4.9); Lymphocytes Percent Auto 28.3 % (20-40); Mean Corpuscular HGB Conc 34.1 g/dl (31.0-36.0); Mean Corpuscular Hemoglobin 31.4 pg (27.0-33.0); Monocytes Absolute Auto 0.6 X10*3/uL (0.1-1.2); Monocytes Percent Auto 10.5 % (2-11); Neutrophils Absolute Auto 3.1 x10*3/uL (2.0-8.3); Neutrophils Percent Auto 55.9 % (45-73); Platelet Count 273 X10*3/uL (160-400); Red Blood Count 4.49 X10*6/uL (4.60-5.80); Red Cell Distribution Width 12.1 % (11.0-16.0); White Blood Count 5.5 X10*3/uL (4.8-10.8)
[2023-09-24 23:40] LABS: Glucose, Whole Blood 498 mg/dL (60-115)
[2023-09-24 23:57] LABS: Alanine Aminotransferase 37 U/L (0-40); Albumin Level 4.1 g/dL (3.5-5.0); Alkaline Phosphatase 86 U/L (39-117); Anion Gap 13 (12-20); Aspartate Amino Transferase 45 U/L (5-37); Bilirubin Total 0.3 mg/dL (0.0-1.0); Blood Urea Nitrogen 16 mg/dL (9-16); Calcium 9.4 mg/dL (8.4-10.2); Carbon Dioxide 27 mmol/L (22-29); Chloride 102 mmol/L (96-108); Estimated Glomerular Filt Rate > 60; Glucose Random 575 mg/dL (60-115); Potassium 4.9 mmol/L (3.3-5.1); Sodium 137 mmol/L (135-145); Total Protein 6.7 g/dL (6.5-8.0)
[2023-09-25 00:07] VITALS: BP 141/83; PULSE 75; RESP 16; O2SAT 99
[2023-09-25 00:16] LABS: Influenza A PCR NEGATIVE (Negative); Influenza B PCR NEGATIVE (Negative); Resp Syncy Virus RNA Qual PCR NEGATIVE (Negative); SARS COV2 PCR INHOUSE NEGATIVE (Negative)
[2023-09-25 01:40] LABS: Glucose, Whole Blood > 600 mg/dL (60-115)
[2023-09-25] MEDS: 0.9 % Sodium Chloride 1,000 ML 999 ML IV ×2 (01:49→04:59)
--- NOTE | 2023-09-25 01:50 | PC.NURSE ---
Let provider know about POC, will administer a bolus of fluids
[2023-09-25 01:55] LABS: Appearance Urine Clear; Color Urine Yellow; Glucose Urine UA >=1000 mg/dL (Negative); Leukocyte Esterase Urine Negative (Negative); Nitrite Urine Negative (Negative); Specific Gravity - Urine 1.025 (1.005-1.025); UMIC TRIGGER UACC YES; Urine Blood Negative (Negative); Urine Ketones Negative (Negative); Urine Protein Negative (Neg-Trace)
[2023-09-25 01:59] LABS: Bacteria Urine None Seen (None Seen); Hyaline Casts Urine 0-2 /LPF (0-2); RBC Urine 0-2 /HPF (0-2); Squamous Epithelial Cell Urine 0-2 /HPF (0-2); WBC Urine 0-5 /HPF (0-5)
[2023-09-25 02:00] VITALS: BP 119/72; PULSE 77; RESP 16; O2SAT 99
[2023-09-25 02:55] LABS: Glucose, Whole Blood 486 mg/dL (60-115)
--- NOTE | 2023-09-25 04:28 | ED_ITS ---
HPI - General Adult General Chief complaint: General Medical Stated complaint: neck/back and high blood sugar Time Seen by Provider: 09/25/23 04:27 Source: patient and family Mode of arrival: ambulatory Limitations: no limitations History of Present Illness HPI narrative: 33-year-old male with a history of diabetes mellitus and recent C1-C2 neck fracture (3 weeks prior) who presents emergency department for evaluation of shortness of breath, cough, chills. Patient states that he is felt short of breath 2 to 3 days. His states that while he was sleeping yesterday morning she thought that he would stop breathing and that his chest did not rise significantly which concerned her. She states she noticed this several times while he was sleeping. Patient states that he has had chills but no fever. He states he has had an occasional cough. He denied chest pain, nausea, vomiting, diarrhea, myalgias arthralgias. The patient is a diabetic but he states that his sugars usually run in the 300 range. He states that he has been peeing frequently and he has been very thirsty and he was concerned that his sugar may be high. Related Data Previous Rx's ?Medication ?Instructions ?Recorded insulin glargine 100 unit/mL 35 unit (0.35 mL) subcut DAILY 30 05/12/23 subcutaneous solution (Lantus days #10.5 mL U-100 Insulin) insulin lispro 100 unit/mL 1 sliding scale dose subcut 05/12/23 subcutaneous pen USEASDIRECTD #15 mL Allergies Allergy/AdvReac Type Severity Reaction Status Date / Time No Known Allergies Allergy Verified 09/24/23 23:11 Review of Systems 2 Review of Systems: Yes all other systems are reviewed and are negative [facility] Past Medical History [facility] Narrative: Social history: He does smoke cigarettes. He denies alcohol use. Medical History IDDM (insulin dependent diabetes mellitus) Social History Social History Household Members: Significant Other Household Members Other:: girlfriend Housing: Apartment Do you presently have visiting nurse or other home services: No Patient Tobacco Use Status: Never used Tobacco Smoked in Last 30 Days: No Substance Use Type: Heroin and Marijuana Advance Directives: No Advance Directives Information Provided: No service: No Physical Exam ED Vital Signs: Vital Signs - 24 hr 09/24/23 23:09 09/25/23 00:07 09/25/23 02:00 Temperature 98.2 F Pulse Rate 89 75 77 Respiratory Rate 18 16 16 Blood Pressure 125/89 141/83 H 119/72 Pulse Oximetry 99 99 99 Oxygen Delivery Method Room Air Room Air Room Air 09/25/23 06:20 Temperature 97.9 F Pulse Rate 77 Respiratory Rate 17 Blood Pressure 116/71 Pulse Oximetry 97 Oxygen Delivery Method Room Air BMI result Body Mass Index 20.2 Vital signs were normal. Exam: General: Awake, alert in no distress, the patient does have an [place] collar on secondary to his C1-C2 cervical fracture Head: Normocephalic, atraumatic EENT: PERRL, Lids normal, sclera normal, conjunctiva normal, nose normal , ears normal, throat without erythema or exudates Neck: Supple, no adenopathy Lung: breath sounds symmetric, no wheezing, rales or rhonchi Chest: symmetric movement, nontender Heart: regular rate and rhythm, normal S1, S2 no murmurs or rubs Abdomen: soft, non-tender, nondistended, normal bowel sounds Back: no vertebral tenderness, no CVAT Extremities: no deformities, moves all extremities symmetrically Neuro: Awake, alert, oriented, normal speech, cranial nerves intact, moves all extremities symmetrically Psych: Pleasant, cooperative Medications Administered Generic Name Dose Route Start Last Admin Trade Name Freq PRN Reason Stop Dose Admin Lactated Ringer's 1,000 mls @ 999 mls/hr 09/25/23 06:00 09/25/23 06:07 Lr IV 09/25/23 07:00 999 mls/hr .Q1H1M ALUREL Administration Discontinued Medications Generic Name Dose Route Start Last Admin Trade Name Freq PRN Reason Stop Dose Admin Sodium Chloride 1,000 mls @ 999 mls/hr 09/25/23 02:00 09/25/23 02:48 Ns IV 09/25/23 03:00 Infused .Q1H1M LAUREL Infusion Sodium Chloride 1,000 mls @ 999 mls/hr 09/25/23 04:51 09/25/23 05:47 Ns IV 09/25/23 05:51 Infused .Q1H1M STA Infusion Insulin Human Regular 5 unit 09/25/23 04:51 09/25/23 04:58 Insulin Regular, Human 100 Unit/Ml 3 Ml Vial IVPUSH 09/25/23 04:52 5 unit ONCE ONE Administration Insulin Human Regular 10 unit 09/25/23 05:59 09/25/23 06:06 Insulin Regular, Human 100 Unit/Ml 3 Ml Vial IVPUSH 09/25/23 06:00 10 unit ONCE ONE Administration Oxycodone HCl 10 mg 09/25/23 04:51 09/25/23 04:58 Oxycodone Hcl Immed Release 5 Mg Tablet PO 09/25/23 04:52 10 mg ONCE ONE Administration Medical Decision Making Medical Decision Making MDM Narrative: 33-year-old male with a history of diabetes mellitus and recent C1-C2 neck fracture (3 weeks prior) who presents emergency department for evaluation of shortness of breath, cough, chills. Patient states that he is felt short of breath 2 to 3 days. He complained of chills but no fever and occasional cough. His was concerned that his respirations appear to be very shallow when he was sleeping. Vital signs were normal. Physical examination was unremarkable. Differential diagnosis: ?Includes but is not limited to pneumonia, bronchitis, anemia, electrolyte abnormalities, hyperglycemia, dehydration, volume depletion Following evaluation was ordered: CBC, CMP, urinalysis, COVID-19, influenza, RSV, chest x-ray, EKG Course: 06:38 My independent interpretation patient's laboratory evaluation is as follows: CBC was normal. CMP was normal except for an elevated glucose of 575. COVID- 19, influenza, RSV were negative. Chest x-ray revealed no acute abnormalities EKG was unremarkable. The patient was treated with normal saline IV x2 L, regular insulin IV 5 units x 2 with no significant improvement of his point of care glucose (486, 394, 432). I ordered lactated Ringer's (3rd liter of fluid) and 10 units of regular insulin. At the end of my shift, the patient has not completed this treatment therefore the patient's care was turned over to my colleague, Dr. Georgia Vargas Admission/Observation Consideration of admission/observation: Escalation of care including admission/observation considered Lab Data [facility] Lab Attestation statement: I reviewed the patient's lab results. 09/24/23 23:31 09/24/23 23:31 Labs: Lab Results 04/09/24/23 09/25/23 Range/Units 23:24 23:31 01:36 WBC 5.5 (4.8-10.8) X10*3/uL RBC 4.49 L (4.60-5.80) X10*6/uL Hgb 14.1 (14.0-18.0) g/dl Hct 41.3 L (42.0-52.0) % MCV 92.0 (80.0-98.0) fL MCH 31.4 (27.0-33.0) pg MCHC 34.1 (31.0-36.0) g/dl RDW 12.1 (11.0-16.0) % Plt Count 273 D (160-400) X10*3/uL MPV 10.0 (9.4-12.4) fL Immature Gran % (Auto) 0.2 (0.0-0.4) % Neut % (Auto) 55.9 (45-73) % Lymph % (Auto) 28.3 (20-40) % [place] % (Auto) 10.5 (2-11) % Eos % (Auto) 4.4 H (0-4) % Baso % (Auto) 0.7 (0-2) % Lymph # (Auto) 1.6 (1.2-4.9) X10*3/uL [place] # (Auto) 0.6 (0.1-1.2) X10*3/uL Eos # (Auto) 0.2 (0.0-0.4) X10*3/uL Baso # (Auto) 0.0 (0.0-0.2) X10*3/uL Abs Immat Gran (auto) 0.01 (0.00-0.03) X10*3/uL Absolute Neuts (auto) 3.1 (2.0-8.3) x10*3/uL Absolute Nucleated RBC 0.000 (0.0-0.012) X10*3/uL Nucleated RBC % (auto) 0.0 (0.0-0.2) /100WBC Sodium 137 (135-145) mmol/L Potassium 4.9 (3.3-5.1) mmol/L Chloride 102 (96-108) mmol/L Carbon Dioxide 27 (22-29) mmol/L Anion Gap 13 (12-20) BUN 16 (9-16) mg/dL Creatinine 0.88 (0.5-1.4) mg/dL Estim Creat Clear Calc 110.0 Estimated GFR > 60 POC Glucose 498 H* > 600 H* (60-115) mg/dL Random Glucose 575 H* (60-115) mg/dL Calcium 9.4 (8.4-10.2) mg/dL Total Bilirubin 0.3 (0.0-1.0) mg/dL AST 45 H (5-37) U/L ALT 37 (0-40) U/L Alkaline Phosphatase 86 (39-117) U/L Total Protein 6.7 (6.5-8.0) g/dL Albumin 4.1 (3.5-5.0) g/dL Urine Color Urine Appearance Urine pH (5.0-9.0) Ur Specific [place] (1.005-1.025) Urine Protein (Neg-Trace) mg/dL Urine Glucose (UA) (Negative) mg/dL Urine Ketones (Negative) mg/dL Urine Blood (Negative) Urine Nitrite (Negative) Ur Leukocyte Esterase (Negative) Urine RBC (0-2) /HPF Urine WBC (0-5) /HPF Ur Squamous Epith Cells (0-2) /HPF Urine Bacteria (None Seen) Hyaline Casts (0-2) /LPF Influenza Type A (PCR) NEGATIVE (Negative) Influenza Type B (PCR) NEGATIVE (Negative) RSV RNA Qual (PCR) NEGATIVE (Negative) SARS-CoV-2 RNA (RT-PCR) NEGATIVE (Negative) 09/25/23 09/25/23 09/25/23 Range/Units 01:47 02:50 04:26 WBC (4.8-10.8) X10*3/uL RBC (4.60-5.80) X10*6/uL Hgb (14.0-18.0) g/dl Hct (42.0-52.0) % MCV (80.0-98.0) fL MCH (27.0-33.0) pg MCHC (31.0-36.0) g/dl RDW (11.0-16.0) % Plt Count (160-400) X10*3/uL MPV (9.4-12.4) fL Immature Gran % (Auto) (0.0-0.4) % Neut % (Auto) (45-73) % Lymph % (Auto) (20-40) % [place] % (Auto) (2-11) % Eos % (Auto) (0-4) % Baso % (Auto) (0-2) % Lymph # (Auto) (1.2-4.9) X10*3/uL [place] # (Auto) (0.1-1.2) X10*3/uL Eos # (Auto) (0.0-0.4) X10*3/uL Baso # (Auto) (0.0-0.2) X10*3/uL Abs Immat Gran (auto) (0.00-0.03) X10*3/uL Absolute Neuts (auto) (2.0-8.3) x10*3/uL Absolute Nucleated RBC (0.0-0.012) X10*3/uL Nucleated RBC % (auto) (0.0-0.2) /100WBC Sodium (135-145) mmol/L Potassium (3.3-5.1) mmol/L Chloride (96-108) mmol/L Carbon Dioxide (22-29) mmol/L Anion Gap (12-20) BUN (9-16) mg/dL Creatinine (0.5-1.4) mg/dL Estim Creat Clear Calc Estimated GFR POC Glucose 486 H* 394 H* (60-115) mg/dL Random Glucose (60-115) mg/dL Calcium (8.4-10.2) mg/dL Total Bilirubin (0.0-1.0) mg/dL AST (5-37) U/L ALT (0-40) U/L Alkaline Phosphatase (39-117) U/L Total Protein (6.5-8.0) g/dL Albumin (3.5-5.0) g/dL Urine Color Yellow Urine Appearance Clear Urine pH 7.0 (5.0-9.0) Ur Specific [place] 1.025 (1.005-1.025) Urine Protein Negative (Neg-Trace) mg/dL Urine Glucose (UA) >=1000 H (Negative) mg/dL Urine Ketones Negative (Negative) mg/dL Urine Blood Negative (Negative) Urine Nitrite Negative (Negative) Ur Leukocyte Esterase Negative (Negative) Urine RBC 0-2 (0-2) /HPF Urine WBC 0-5 (0-5) /HPF Ur Squamous Epith Cells 0-2 (0-2) /HPF Urine Bacteria None Seen (None Seen) Hyaline Casts 0-2 (0-2) /LPF Influenza Type A (PCR) (Negative) Influenza Type B (PCR) (Negative) RSV RNA Qual (PCR) (Negative) SARS-CoV-2 RNA (RT-PCR) (Negative) 09/25/23 Range/Units 05:46 WBC (4.8-10.8) X10*3/uL RBC (4.60-5.80) X10*6/uL Hgb (14.0-18.0) g/dl Hct (42.0-52.0) % MCV (80.0-98.0) fL MCH (27.0-33.0) pg MCHC (31.0-36.0) g/dl RDW (11.0-16.0) % Plt Count (160-400) X10*3/uL MPV (9.4-12.4) fL Immature Gran % (Auto) (0.0-0.4) % Neut % (Auto) (45-73) % Lymph % (Auto) (20-40) % [place] % (Auto) (2-11) % Eos % (Auto) (0-4) % Baso % (Auto) (0-2) % Lymph # (Auto) (1.2-4.9) X10*3/uL [place] # (Auto) (0.1-1.2) X10*3/uL Eos # (Auto) (0.0-0.4) X10*3/uL Baso # (Auto) (0.0-0.2) X10*3/uL Abs Immat Gran (auto) (0.00-0.03) X10*3/uL Absolute Neuts (auto) (2.0-8.3) x10*3/uL Absolute Nucleated RBC (0.0-0.012) X10*3/uL Nucleated RBC % (auto) (0.0-0.2) /100WBC Sodium (135-145) mmol/L Potassium (3.3-5.1) mmol/L Chloride (96-108) mmol/L Carbon Dioxide (22-29) mmol/L Anion Gap (12-20) BUN (9-16) mg/dL Creatinine (0.5-1.4) mg/dL Estim Creat Clear Calc Estimated GFR POC Glucose 432 H* (60-115) mg/dL Random Glucose (60-115) mg/dL Calcium (8.4-10.2) mg/dL Total Bilirubin (0.0-1.0) mg/dL AST (5-37) U/L ALT (0-40) U/L Alkaline Phosphatase (39-117) U/L Total Protein (6.5-8.0) g/dL Albumin (3.5-5.0) g/dL Urine Color Urine Appearance Urine pH (5.0-9.0) Ur Specific [place] (1.005-1.025) Urine Protein (Neg-Trace) mg/dL Urine Glucose (UA) (Negative) mg/dL Urine Ketones (Negative) mg/dL Urine Blood (Negative) Urine Nitrite (Negative) Ur Leukocyte Esterase (Negative) Urine RBC (0-2) /HPF Urine WBC (0-5) /HPF Ur Squamous Epith Cells (0-2) /HPF Urine Bacteria (None Seen) Hyaline Casts (0-2) /LPF Influenza Type A (PCR) (Negative) Influenza Type B (PCR) (Negative) RSV RNA Qual (PCR) (Negative) SARS-CoV-2 RNA (RT-PCR) (Negative) Independent Interpretation I performed an independent interpretation of an: EKG and Plain X-Ray Interpretation: My interpretation patient's chest x-ray is as follows: No acute disease My interpretation patient's 12 EKG done at 21:18 hours is as follows: Normal sinus rhythm with a rate of 74, normal MS interval, QRS duration QTC interval, no ST segment elevation, no ST segment depression, no significant T-wave abnormalities, no PACs, no PVCs Radiology Impression Radiologist Impression: XR chest 2V IMPRESSION: Unremarkable examination. Dictated By: Pierre Underwood MD Independent Historian Clinical information obtained from an independent historian. History obtained from or confirmed by: Spouse Chronic Conditions Patient?s care impacted by: Diabetes Discharge Plan Discharge Clinical Impression: Acute hyperglycemia, Acute dehydration, Acute dyspnea Patient Disposition: Still a Patient Prescriptions: No Action insulin glargine [Lantus U-100 Insulin] 100 unit/mL Solution 35 unit subcut DAILY 30 Days Qty: 10.5 0RF insulin lispro 100 unit/mL insulin pen 1 sliding scale dose subcut USEASDIRECTD Qty: 15 0RF Rx Instructions: Less than or equal to 110 ---- Give (units):0 111 to 150 Give (units):4 151 to 200 Give (units):6 201 to 250 Give (units):8 251 to 300 Give (units):10 301 to 350 Give (units):12 Greater than 350 Give (units):15 Print Language: Bahamian
[2023-09-25 04:29] LABS: Glucose, Whole Blood 394 mg/dL (60-115)
[2023-09-25] MEDS: oxyCODONE HCl Immed Release 5 MG TABLET 10 MG PO (04:58)
[2023-09-25] MEDS: Insulin Regular, Human 100 UNIT/ML 3 ML VIAL IVPUSH (04:58)
[2023-09-25 05:52] LABS: Glucose, Whole Blood 432 mg/dL (60-115)
[2023-09-25] MEDS: Insulin Regular, Human 100 UNIT/ML 3 ML VIAL 10 UNIT IVPUSH (06:06)
[2023-09-25] MEDS: Lactated Ringers 1,000 ML 999 ML IV (06:07)
[2023-09-25 06:20] VITALS: BP 116/71; PULSE 77; RESP 17; TEMP 36.6; O2SAT 97
[2023-09-25 08:05] LABS: Glucose, Whole Blood 121 mg/dL (60-115)
[2023-09-25 08:22] VITALS: BP 121/80; PULSE 70; RESP 16; TEMP 36.6; O2SAT 98
[2023-09-25 08:47] VITALS: BP 121/80; PULSE 70; RESP 16; TEMP 36.6; O2SAT 98
== END 2023-09-25 08:48 | disposition home or self-care (01) ==
PROVIDERS: Emergency Provider Emergency Medicine Emergency Medical Services
DX: E11.65 Type 2 diabetes mellitus with hyperglycemia (principal); E86.0 Dehydration; R06.00 Dyspnea, unspecified; Z79.4 Long term (current) use of insulin
CPT/HCPCS: 0241U; 71046; 80053; 81001; 82947; 85025; 93005; 96361; 96374; 96376; 99285; J7120

== ENCOUNTER → 2023-09-24 23:18 | Outpatient (BNV) | payer OTHER, SELFPAY | PROVIDERS: Emergency Provider Emergency Medicine Emergency Medical Services; Visit Provider Internal Medicine Cardiovascular Disease | DX: R94.31 Abnormal electrocardiogram [ECG] [EKG] (principal) | CPT/HCPCS: 93010 ==

== ENCOUNTER 2023-11-06 23:11 | Emergency (ER) | payer OTHER, SELFPAY ==
[2023-11-06 23:18] VITALS: BP 131/80; PULSE 77; RESP 18; TEMP 36.7; O2SAT 97; BMI 20.2
[2023-11-07 00:26] LABS: MANUAL DIFF FLAG NO
[2023-11-07 00:27] LABS: Basophils Absolute Auto 0.1 X10*3/uL (0.0-0.2); Basophils Percent Auto 0.7 % (0-2); Eosinophils Absolute Auto 0.1 X10*3/uL (0.0-0.4); Eosinophils Percent Auto 0.8 % (0-4); Hematocrit 40.9 % (42.0-52.0); Hemoglobin 14.3 g/dl (14.0-18.0); Imm Gran Abs Auto 0.03 X10*3/uL (0.00-0.03); Imm Gran Pct Auto 0.3 % (0.0-0.4); Lymphocytes Absolute Auto 1.6 X10*3/uL (1.2-4.9); Lymphocytes Percent Auto 17.5 % (20-40); Mean Corpuscular Hemoglobin 31.8 pg (27.0-33.0); Mean Corpuscular Volume 90.9 fL (80.0-98.0); Monocytes Absolute Auto 0.4 X10*3/uL (0.1-1.2); Monocytes Percent Auto 4.1 % (2-11); Neutrophils Percent Auto 76.6 % (45-73); Platelet Count 238 X10*3/uL (160-400); White Blood Count 9.1 X10*3/uL (4.8-10.8)
[2023-11-07 00:43] LABS: Alanine Aminotransferase 27 U/L (0-40); Albumin Level 4.3 g/dL (3.5-5.0); Alkaline Phosphatase 85 U/L (39-117); Anion Gap 23 (12-20); Aspartate Amino Transferase 19 U/L (5-37); Bilirubin Total 0.4 mg/dL (0.0-1.0); Blood Urea Nitrogen 17 mg/dL (9-16); Calcium 8.9 mg/dL (8.4-10.2); Carbon Dioxide 17 mmol/L (22-29); Chloride 96 mmol/L (96-108); Creatinine Clr Calc Pharmacy 71.7; Estimated Glomerular Filt Rate > 60; Glucose Random 647 mg/dL (60-115); Potassium 5.1 mmol/L (3.3-5.1); Sodium 131 mmol/L (135-145); Total Protein 6.9 g/dL (6.5-8.0)
[2023-11-07 02:07] LABS: Glucose, Whole Blood > 600 mg/dL (60-115)
[2023-11-07 02:11] VITALS: BP 127/76; PULSE 69; RESP 18; O2SAT 98
[2023-11-07] MEDS: 0.9 % Sodium Chloride 1,000 ML 999 ML IV ×2 (03:31→04:31)
--- NOTE | 2023-11-07 03:42 | ED.GENADULT ---
HPI - General Adult General Chief complaint: General Medical Stated complaint: gen med, feels faint Time Seen by Provider: 11/07/23 03:34 Source: patient and family Mode of arrival: ambulatory Limitations: no limitations History of Present Illness ED Provider: Dr. Maci Haile HPI narrative: Patient comes to the emergency room complaining of high blood sugar. Patient states that he ran out of his Lantus, still using Humalog on a sliding scale. Patient states that for 2 weeks he has not had any Lantus, he is supposed to use 30 units at bedtime but his pharmacy has insulin in back order. Patient complaining generalized malaise, no significant abdominal pain. Patient states that he feels dehydrated, dry mouth. Related Data Previous Rx's ?Medication ?Instructions ?Recorded insulin glargine 100 unit/mL 35 unit (0.35 mL) subcut DAILY 30 05/12/23 subcutaneous solution (Lantus days #10.5 mL U-100 Insulin) insulin lispro 100 unit/mL 1 sliding scale dose subcut 05/12/23 subcutaneous pen USEASDIRECTD #15 mL insulin glargine 100 unit/mL (3 30 unit (0.3 mL) subcut ONCE #15 mL 11/07/23 mL) subcutaneous pen (Lantus Solostar U-100 Insulin) insulin lispro 100 unit/mL 1 sliding scale dose subcut 11/07/23 subcutaneous pen USEASDIRECTD #15 mL insulin syringe-needle U-100 0.5 #100 ea 11/07/23 mL 30 gauge x 1/2 (BD Insulin Syringe Ultra-Fine) Allergies Allergy/AdvReac Type Severity Reaction Status Date / Time No Known Allergies Allergy Verified 11/06/23 23:19 Review of Systems Review of Systems: Constitutional : No Weight loss, No Fever, No Chills, No Night Sweats, complaining of generalized malaise ENT/Mouth : No Hearing loss, No Ear Pain, No Nasal Congestion, No Sinus Pain, No Hoarseness, No sore throat, No Rhinorrhea, No Swallowing Difficulty Eyes: No Eye Pain, No Swelling, No Redness, No Foreign Body, No Discharge, No Vision Changes Cardiovascular : No Chest Pain, No SOB, No Dyspnea on Exertion, No Orthopnea, No Edema, No Palpitations Respiratory : No Cough, No Sputum, No Wheezing, No Smoke Exposure, No Dyspnea Gastrointestinal : No Nausea, No Vomiting, No Diarrhea, No Constipation, No abdominal Pain, No Hematochezia, No Melena Genitourinary : no irregular bleeding, No Dysuria, No Urinary Frequency, No Hematuria, No Urinary Incontinence, No Urgency, No Flank Pain, No Urinary Flow Changes, No Hesitancy Musculoskeletal : No joint pain, No Myalgias, No Joint Swelling Skin : No Skin Lesions, No rash Neuro : No Weakness, No Numbness, No Paresthesias, No Loss of Consciousness, No Dizziness, No Headache Psych : No Anxiety/Panic, No Depression, No SI/HI/AH/VH, No Social Issues, Heme/Lymph: No Bruising, No Bleeding,No Lymphadenopathy Endocrine : Complaining of polydipsia, polyuria PMFSH Past Medical History Medical History IDDM (insulin dependent diabetes mellitus) Social History Social History Household Members: Significant Other Household Members Other:: girlfriend Housing: Apartment Do you presently have visiting nurse or other home services: No Alcohol intake: never Patient Tobacco Use Status: Never used Tobacco Smoked in Last 30 Days: Yes Use of substances other than those prescribed or required for medical reasons: No Substance Use Type: Heroin and Marijuana Advance Directives: No Advance Directives Information Provided: Yes service: No Physical Exam ED Vital Signs: Vital Signs - 24 hr 11/06/23 23:18 11/07/23 02:11 Temperature 98.0 F Pulse Rate 77 69 Respiratory Rate 18 18 Blood Pressure 131/80 127/76 Pulse Oximetry 97 98 Oxygen Delivery Method Room Air Room Air BMI result Body Mass Index 20.2 Const Other: Appearance: Alert. Oriented X3. No acute distress. Eyes: Pupils equal, round and reactive to light. ENT: Pharynx normal. Dry oral mucosa Neck: Patient has a hard collar in place, recuperating 3 months from a C1 fracture CVS: Normal heart rate and rhythm. Pulses normal. Normal S1 and S2 Respiratory: No respiratory distress. Breath sounds normal. No Wheezing. No rales Abdomen: Soft and nontender. No rigidity. No distention. Skin: Skin warm and dry. Normal skin color. Normal skin turgor. Extremities: No lower extremity edema. No Lacerations. No Rash Neuro: Oriented X 3. No motor deficit. No sensory deficit. Moving all extremities. No slurred speech. CN 2 through 12 grossly intact Psych: calm, cooperative, normal affect Medications Administered Discontinued Medications Generic Name Dose Route Start Last Admin Trade Name Yumiko PRN Reason Stop Dose Admin Sodium Chloride 1,000 mls @ 999 mls/hr 11/07/23 03:30 11/07/23 04:35 Ns IV 11/07/23 04:30 Infused .Q1H1M LAUREL Infusion Sodium Chloride 1,000 mls @ 999 mls/hr 11/07/23 04:30 11/07/23 05:37 Ns IV 11/07/23 05:30 Infused .Q1H1M LAUREL Infusion Sodium Chloride 1,000 mls @ 999 mls/hr 11/07/23 05:33 11/07/23 06:41 Ns IVCONT 11/07/23 06:33 Infused .Q1H1M ONE Infusion Insulin Human Regular 10 unit 11/07/23 03:37 11/07/23 03:49 Insulin Regular, Human 100 Unit/Ml 10 Ml Vial IVPUSH 11/07/23 03:38 10 unit ONCE ONE Administration Insulin Human Regular 10 unit 11/07/23 05:33 11/07/23 05:52 Insulin Regular, Human 100 Unit/Ml 10 Ml Vial IVPUSH 11/07/23 05:34 10 unit ONCE ONE Administration Medical Decision Making Medical Decision Making [facility] Narrative: My interpretation of labs, normal hematology, chemistry shows a glucose of 647, sodium 131, corrected sodium within normal limits. Anion gap 23 -patient receiving 2 L of normal saline, 10 units of insulin. -we will repeat labs after the fluids -after IV fluids and insulin patient's anion gap closed, glucose 188, patient asymptomatic. Differential Diagnosis Differential Diagnoses: The differential diagnosis associated with the presentation includes (Dehydration, DKA, hyperglycemia, medication noncompliance) Admission/Observation Consideration of admission/observation: Escalation of care including admission/observation considered (Given patient's presentation and labs, admission/observation was considered) Lab Data [facility] Lab Attestation statement: I reviewed the patient's lab results. 11/07/23 00:17 11/07/23 05:09 Labs: Lab Results 11/07/23 11/07/23 11/07/23 Range/Units 00:17 02:02 04:52 WBC 9.1 (4.8-10.8) X10*3/uL RBC 4.50 L (4.60-5.80) X10*6/uL Hgb 14.3 (14.0-18.0) g/dl Hct 40.9 L (42.0-52.0) % MCV 90.9 (80.0-98.0) fL MCH 31.8 (27.0-33.0) pg MCHC 35.0 (31.0-36.0) g/dl RDW 12.0 (11.0-16.0) % Plt Count 238 (160-400) X10*3/uL MPV 10.0 (9.4-12.4) fL Immature Gran % (Auto) 0.3 (0.0-0.4) % Neut % (Auto) 76.6 H (45-73) % Lymph % (Auto) 17.5 L (20-40) % [place] % (Auto) 4.1 (2-11) % Eos % (Auto) 0.8 (0-4) % Baso % (Auto) 0.7 (0-2) % Lymph # (Auto) 1.6 (1.2-4.9) X10*3/uL [place] # (Auto) 0.4 (0.1-1.2) X10*3/uL Eos # (Auto) 0.1 (0.0-0.4) X10*3/uL Baso # (Auto) 0.1 (0.0-0.2) X10*3/uL Abs Immat Gran (auto) 0.03 (0.00-0.03) X10*3/uL Absolute Neuts (auto) 7.0 (2.0-8.3) x10*3/uL Absolute Nucleated RBC 0.000 (0.0-0.012) X10*3/uL Nucleated RBC % (auto) 0.0 (0.0-0.2) /100WBC Sodium 131 L (135-145) mmol/L Potassium 5.1 (3.3-5.1) mmol/L Chloride 96 (96-108) mmol/L Carbon Dioxide 17 L (22-29) mmol/L Anion Gap 23 H (12-20) BUN 17 H (9-16) mg/dL Creatinine 1.35 (0.5-1.4) mg/dL Estim Creat Clear Calc 71.7 Estimated GFR > 60 POC Glucose > 600 H* 381 H* (60-115) mg/dL Random Glucose 647 H* (60-115) mg/dL Calcium 8.9 (8.4-10.2) mg/dL Total Bilirubin 0.4 (0.0-1.0) mg/dL AST 19 (5-37) U/L ALT 27 (0-40) U/L Alkaline Phosphatase 85 (39-117) U/L Total Protein 6.9 (6.5-8.0) g/dL Albumin 4.3 (3.5-5.0) g/dL Beta-Hydroxybutyrate 5.45 H (0.02-0.27) mmol/L 11/07/23 Range/Units 05:09 WBC (4.8-10.8) X10*3/uL RBC (4.60-5.80) X10*6/uL Hgb (14.0-18.0) g/dl Hct (42.0-52.0) % MCV (80.0-98.0) fL MCH (27.0-33.0) pg MCHC (31.0-36.0) g/dl RDW (11.0-16.0) % Plt Count (160-400) X10*3/uL MPV (9.4-12.4) fL Immature Gran % (Auto) (0.0-0.4) % Neut % (Auto) (45-73) % Lymph % (Auto) (20-40) % [place] % (Auto) (2-11) % Eos % (Auto) (0-4) % Baso % (Auto) (0-2) % Lymph # (Auto) (1.2-4.9) X10*3/uL [place] # (Auto) (0.1-1.2) X10*3/uL Eos # (Auto) (0.0-0.4) X10*3/uL Baso # (Auto) (0.0-0.2) X10*3/uL Abs Immat Gran (auto) (0.00-0.03) X10*3/uL Absolute Neuts (auto) (2.0-8.3) x10*3/uL Absolute Nucleated RBC (0.0-0.012) X10*3/uL Nucleated RBC % (auto) (0.0-0.2) /100WBC Sodium 134 L (135-145) mmol/L Potassium 3.8 D (3.3-5.1) mmol/L Chloride 103 (96-108) mmol/L Carbon Dioxide 18 L (22-29) mmol/L Anion Gap 17 (12-20) BUN 14 (9-16) mg/dL Creatinine 1.02 (0.5-1.4) mg/dL Estim Creat Clear Calc 94.9 Estimated GFR > 60 POC Glucose (60-115) mg/dL Random Glucose 419 H* (60-115) mg/dL Calcium 8.2 L D (8.4-10.2) mg/dL Total Bilirubin (0.0-1.0) mg/dL AST (5-37) U/L ALT (0-40) U/L Alkaline Phosphatase (39-117) U/L Total Protein (6.5-8.0) g/dL Albumin (3.5-5.0) g/dL Beta-Hydroxybutyrate 3.63 H (0.02-0.27) mmol/L Critical Care Time Critical Care Time Critical Care Time: Yes Total Critical Care Time: 60 Attestation: I have personally provided critical care time. Time includes review of lab data, radiology results, discussion with consultants, and monitoring for potential decompensation. Intervention performed as documented. Discharge Plan Discharge Clinical Impression: Acute hyperglycemia Patient Disposition: Home, Self-Care Instructions: Diabetic Hyperglycemia (ED) Additional Instructions: Please follow-up with your primary care physician tomorrow. If you have any worsening or new symptoms, please return to the emergency room or call 911 Prescriptions: New insulin glargine [Lantus Solostar U-100 Insulin] 100 unit/mL (3 mL) insulin pen 30 unit subcut ONCE Qty: 15 0RF (DME) insulin syringe-needle U-100 [BD Insulin Syringe Ultra-Fine] 0.5 mL 30 gauge x 1/2 syringe See Rx Instructions .Route Qty: 100 0RF Rx Instructions: As directed insulin lispro 100 unit/mL insulin pen 1 sliding scale dose subcut USEASDIRECTD Qty: 15 0RF No Action insulin glargine [Lantus U-100 Insulin] 100 unit/mL Solution 35 unit subcut DAILY 30 Days Qty: 10.5 0RF insulin lispro 100 unit/mL insulin pen 1 sliding scale dose subcut USEASDIRECTD Qty: 15 0RF Rx Instructions: Less than or equal to 110 ---- Give (units):0 111 to 150 Give (units):4 151 to 200 Give (units):6 201 to 250 Give (units):8 251 to 300 Give (units):10 301 to 350 Give (units):12 Greater than 350 Give (units):15 Print Language: Croatian
[2023-11-07] MEDS: Insulin Regular, Human 100 UNIT/ML 10 ML VIAL 10 UNIT IVPUSH ×2 (03:49→05:52)
[2023-11-07 04:06] LABS: Beta-Hydroxybutyrate 5.45 mmol/L (0.02-0.27)
[2023-11-07 04:57] LABS: Glucose, Whole Blood 381 mg/dL (60-115)
[2023-11-07 05:32] LABS: Anion Gap 17 (12-20); Blood Urea Nitrogen 14 mg/dL (9-16); Calcium 8.2 mg/dL (8.4-10.2); Carbon Dioxide 18 mmol/L (22-29); Chloride 103 mmol/L (96-108); Creatinine Clr Calc Pharmacy 94.9; Estimated Glomerular Filt Rate > 60; Potassium 3.8 mmol/L (3.3-5.1); Sodium 134 mmol/L (135-145)
[2023-11-07 05:33] LABS: Beta-Hydroxybutyrate 3.63 mmol/L (0.02-0.27); Glucose Random 419 mg/dL (60-115)
[2023-11-07] MEDS: 0.9 % Sodium Chloride 1,000 ML 999 ML IVCONT (05:37)
[2023-11-07 06:57] LABS: Glucose, Whole Blood 188 mg/dL (60-115)
[2023-11-07 07:21] VITALS: BP 118/68; PULSE 64; RESP 18; TEMP 36.6; O2SAT 98
== END 2023-11-07 07:23 | disposition home or self-care (01) ==
PROVIDERS: Emergency Provider Emergency Medicine
DX: E11.65 Type 2 diabetes mellitus with hyperglycemia (principal); Z79.4 Long term (current) use of insulin; Z79.84 Long term (current) use of oral hypoglycemic drugs; F12.90 Cannabis use, unspecified, uncomplicated
CPT/HCPCS: 36415; 80048; 80053; 82010; 82947; 85025; 96361; 96374; 96376; 99284